=== PATIENT | female | born 1980 | race Caucasian/White ===

== ENCOUNTER → 2016-03-31 | Outpatient (CLI) | payer OTHER ==
[~2016-03-31] MED LIST: OXYC1TAB23 PO
== END ==
LOC: M LAB 14:41
PROVIDERS: ATTEND Advanced Practice Midwife
DX: N91.2 Amenorrhea, unspecified (principal)

== ENCOUNTER → 2016-04-02 | Outpatient (CLI) | payer OTHER | LOC: M LAB 12:24 | PROVIDERS: ATTEND Advanced Practice Midwife | DX: N91.2 Amenorrhea, unspecified (principal) ==

== ENCOUNTER → 2016-04-14 | Outpatient (CLI) | payer OTHER ==
[2016-04-14 21:35] LABS: BASO % 0.2 % (0.0-1.0); EOS # 0.1 K/mm3 (0.0-0.50); EOS % 0.9 % (0.0-3.0); LARGE UNSTAINED CELL # 0.2 K/mm3 (0.0-0.4); LARGE UNSTAINED CELL % 1.7 % (0.0-4.0); LYMPH # 1.8 K/mm3 (1.5-4.5); LYMPH % 19.1 % (24.0-44.0); MEAN CORPUSCULAR HEMOGLOBIN 30.6 pg (27.0-33.0); MEAN CORPUSCULAR HGB CONC 32.5 g/dl (32.0-36.5); MEAN CORPUSCULAR VOLUME 94.3 fl (80.0-96.0); MONO # 0.4 K/mm3 (0.0-0.8); MONO % 4.5 % (0.0-5.0); NEUTROPHILS # 7.1 K/mm3 (1.8-7.7); NEUTROPHILS % 73.6 % (36.0-66.0); PLATELET COUNT, AUTOMATED 309 k/mm3 (150-450); RED CELL DISTRIBUTION WIDTH 11.7 % (11.5-14.5); WHITE BLOOD COUNT 9.6 K/mm3 (4.0-10.0)
[2016-04-16 08:09] LABS: CONTROL LINE INT CTR LINE PRESENT; HIV SCRN NEGATIVE (NEGATIVE); HIV SCRN1 NEGATIVE (NEGATIVE)
[2016-04-17 11:02] LABS: HBsAg Prenatal NEGATIVE (NEGATIVE)
== END ==
LOC: M SMT 14:31
PROVIDERS: ATTEND Advanced Practice Midwife
DX: Z34.81 Encounter for supervision of other normal pregnancy, first trimester (principal)

== ENCOUNTER → 2016-04-27 | Outpatient (CLI) | payer OTHER, MEDICAID | LOC: M SMT 09:40 | PROVIDERS: ATTEND Advanced Practice Midwife | DX: Z87.59 Personal history of other complications of pregnancy, childbirth and the puerperium (principal) ==

== ENCOUNTER → 2016-07-13 | Outpatient (CLI) | payer OTHER, MEDICAID ==
--- NOTE | 2016-07-14 02:09 | REP ---
Clinical: Anatomical evaluation. Comparison: None . Findings: Examination demonstrates a single live intrauterine in breech presentation. motion is identified by technologist. Placenta is noted posteriorly and grade zero without evidence for placenta previa or abruption. Amniotic fluid volume is normal. Cervix measures 3.2 cm in length and appears closed. No evidence for nuchal cord. Gestational age by LMP 19 weeks 6 days with MATTHIAS 12/01/2016 . Gestational age by current measurements 20 weeks 4 days with MATTHIAS 11/26/2016 . FHR equals 153 beats per minute. BPD 5.0 cm 21 weeks 0 days HC 17.9 cm 20 weeks 2 days AC 16.1 cm 21 weeks 1 day FL 3.4 cm 20 weeks 5 days HL 3.2 cm 20 weeks 5 days HC/AC ratio 1.11 Estimated weight 384 grams ( 84th percentile). Anatomical assessment demonstrates normal structures including cranium, choroid plexus, cavum, cerebellum/posterior fossa, facial features, lungs, diaphragm, stomach, cord insertion/three-vessel cord, kidneys/bladder, spine, and extremities. Impression: 1. Single live intrauterine in breech presentation demonstrating appropriate interval growth. 2. Limited evaluation of the heart and cardiac ventricular outflow tract. Otherwise normal anatomical assessment. Signed by Moshe Street MD 07/14/2016 02:01 A
== END ==
LOC: M SMT 08:54
PROVIDERS: ATTEND Obstetrics & Gynecology
DX: Z34.83 Encounter for supervision of other normal pregnancy, third trimester (principal); Z3A.19 19 weeks gestation of pregnancy

== ENCOUNTER → 2016-09-13 | Outpatient (CLI) | payer OTHER ==
[~2016-09-13] MED LIST changes: +COLA100C5 PO; +IBUP-1114 PO; +PRENCAP6 PO; +PRENTAB52 PO
[2016-09-13 13:31] LABS: BASO % 0.2 % (0.0-1.0); EOS # 0.1 K/mm3 (0.0-0.50); EOS % 0.8 % (0.0-3.0); LARGE UNSTAINED CELL # 0.1 K/mm3 (0.0-0.4); LARGE UNSTAINED CELL % 0.6 % (0.0-4.0); LYMPH # 1.6 K/mm3 (1.5-4.5); LYMPH % 12.4 % (24.0-44.0); MEAN CORPUSCULAR HEMOGLOBIN 31.6 pg (27.0-33.0); MEAN CORPUSCULAR HGB CONC 33.2 g/dl (32.0-36.5); MONO # 0.5 K/mm3 (0.0-0.8); MONO % 4.3 % (0.0-5.0); NEUTROPHILS # 9.8 K/mm3 (1.8-7.7); NEUTROPHILS % 81.7 % (36.0-66.0); PLATELET COUNT, AUTOMATED 291 k/mm3 (150-450); RED CELL DISTRIBUTION WIDTH 12.2 % (11.5-14.5); WHITE BLOOD COUNT 11.9 K/mm3 (4.0-10.0)
== END ==
LOC: M SMT 08:20
PROVIDERS: ATTEND Advanced Practice Midwife
DX: Z34.83 Encounter for supervision of other normal pregnancy, third trimester (principal)

== ENCOUNTER → 2016-11-01 | Outpatient (REF) | payer OTHER | LOC: M LAB REF 12:46 | PROVIDERS: ATTEND Advanced Practice Midwife | DX: Z34.83 Encounter for supervision of other normal pregnancy, third trimester (principal) ==

== ENCOUNTER 2016-11-23 06:07 | Inpatient (IN) | payer OTHER ==
[2016-11-23] VITALS (8 sets, daily range): BP systolic 109–120; BP diastolic 52–62
[~2016-11-23] VITALS: Ht 162.6 cm; Wt 100.3 kg
[~2016-11-23 06:07] MED LIST changes: +BICITRA 30ML SOLN UDC PO ONE; -COLA100C5 PO; -IBUP-1114 PO; +LR 1,000 ML IV SCH; +LR 800 ML IV ONE
[2016-11-23 07:02] LABS: MEAN CORPUSCULAR HEMOGLOBIN 31.1 pg (27.0-33.0); MEAN CORPUSCULAR HGB CONC 34.4 g/dl (32.0-36.5); MEAN CORPUSCULAR VOLUME 90.6 fl (80.0-96.0); RED CELL DISTRIBUTION WIDTH 13.1 % (11.5-14.5); WHITE BLOOD COUNT 12.4 10^3/uL (4.0-10.0)
[2016-11-23] MEDS ORDERED: MORPHINE PRES-FREE INJ 10 MG/10 ML VIAL (J2274) As Ordered ONE (07:22)
[2016-11-23] MEDS ORDERED: OXYTOCIN INJ 10 UNITS/ML VIAL (J2590) As Ordered ONE (07:24)
[2016-11-23] MEDS ORDERED: KETOROLAC 60 MG/2 ML VIAL (J1885) As Ordered ONE (07:24)
[2016-11-23] MEDS ORDERED: ONDANSETRON 4MG/2ML VIAL (J2405) As Ordered ONE (07:24)
[2016-11-23] MEDS ORDERED: ATROPINE SULF 1MG/10ML SYRINGE (J0461) As Ordered ONE (08:17)
[2016-11-23] MEDS ORDERED: ONDANSETRON 4MG/2ML VIAL (J2405) IV PRN ×2 (09:00→09:15)
[2016-11-23] MEDS ORDERED: PERCOCET 5MG/325MG TAB PO PRN (09:00)
[2016-11-23] MEDS: PRENATAL VITAMINS CHEWABLE TABLET PO SCH (09:00)
[2016-11-23] MEDS ORDERED: DOCUSATE SODIUM 100 MG CAP PO PRN (09:00)
[2016-11-23] MEDS ORDERED: RHOGAM 300 MCG (1500 IU) INJ (J2790) IM SCH (09:00)
[2016-11-23] MEDS ORDERED: MEASLES,MUMPS,RUBELLA VACCINE INJ (MMR-II) (90707) SC SCH (09:00)
[2016-11-23] MEDS ORDERED: OXYTOCIN DRIP 30 UNITS in APPROPRIATE DILUENT 1 EA IV ONE (09:00)
[2016-11-23] MEDS ORDERED: METOCLOPRAMIDE INJ 10MG/2ML VIAL (J2765) IV PRN (09:15)
[2016-11-23] MEDS ORDERED: MEPERIDINE INJ 25 MG/ML VIAL (J2175) IV PRN (09:15)
[2016-11-23] MEDS ORDERED: LR 1,000 ML IV SCH (09:15)
[2016-11-23] MEDS ORDERED: fentaNYL 100 MCG/2 ML INJECTION (J3010) IV PRN (09:15)
--- NOTE | 2016-11-23 09:42 | RO ---
DATE OF PROCEDURE: 11/23/2016 PREPROCEDURE DIAGNOSIS: 39 weeks gestation, prior third degree perineal laceration. POSTPROCEDURE DIAGNOSIS: 39 weeks gestation, prior third degree perineal laceration. PROCEDURE: Primary low transverse section. SURGEON: Dr. Orlin Mullen. AUTO RESEARCH ENGINEER: Roselia Tran ANESTHESIA: Spinal. ESTIMATED BLOOD LOSS: 500 mL. URINE OUTPUT: 150 mL. FINDINGS: 10 pound 8 ounce male infant, 4770 grams, 9 and 9. Normal uterus, fallopian tubes and ovaries. OPERATIVE SUMMARY: The patient was taken to the operating room where spinal anesthesia was induced. She was prepped and draped in a sterile fashion in the supine position. Mcrae catheter was placed. A Pfannenstiel skin incision was made with a scalpel and carried through to the fascia. The fascia was nicked and extended. The peritoneal cavity was entered. Bladder flap was created. Curvilinear incision was made in the lower uterine segment until clear fluid was noted. This was extended manually. The infant was delivered from the vertex position without difficulty. The cord was doubly clamped and cut. The was handed off to the awaiting nurses. The placenta was expressed. The uterus was exteriorized and cleared of clots and debris. Uterine incision was closed with #0 Vicryl in a running locked fashion. A second imbricating layer of #0 Vicryl was placed. The uterus was placed back in the abdominal cavity. The peritoneum was closed with #2-0 Vicryl. The fascia was closed with #0 Vicryl in a running fashion. The deep layer was irrigated and closed with #3-0 Chromic. The skin was closed with #4-0 Monocryl subcuticular sutures. Sponge, instrument, needle counts were correct.
[2016-11-23] MEDS: LR 1,000 ML IV SCH ×2 (11:40→13:58)
[2016-11-23] MEDS: KETOROLAC 30 MG/ML VIAL (J1885) IV SCH ×2 (13:57→20:07)
[2016-11-23] MEDS ORDERED: LR 500 ML IV ONE (18:00)
[2016-11-24] VITALS (8 sets, daily range): BP systolic 99–132; BP diastolic 49–65
[2016-11-24] MEDS: LR 1,000 ML IV SCH ×4 (00:52→23:56)
[2016-11-24] MEDS: KETOROLAC 30 MG/ML VIAL (J1885) IV SCH (01:30)
[2016-11-24] MEDS: PERCOCET 5MG/325MG TAB PO PRN ×2 (05:56→16:33)
[2016-11-24 07:22] LABS: MEAN CORPUSCULAR HEMOGLOBIN 30.5 pg (27.0-33.0); MEAN CORPUSCULAR HGB CONC 32.8 g/dl (32.0-36.5); PLATELET COUNT, AUTOMATED 223 10^3/uL (150-450); RED CELL DISTRIBUTION WIDTH 13.3 % (11.5-14.5); WHITE BLOOD COUNT 15.9 10^3/uL (4.0-10.0)
[2016-11-24] MEDS ORDERED: OXYC1TAB23 PO (07:45)
[2016-11-24] MEDS: IBUPROFEN 800 MG TAB PO SCH ×3 (07:47→23:57)
[2016-11-24] MEDS: PRENATAL VITAMINS CHEWABLE TABLET PO SCH (07:47)
[2016-11-24] MEDS ORDERED: IBUPROFEN 800 MG TAB PO SCH (16:00)
[2016-11-25 02:00] VITALS: BP 115/60
[2016-11-25 06:00] VITALS: BP 113/65
[2016-11-25] MEDS: IBUPROFEN 800 MG TAB PO SCH (07:13)
[2016-11-25] MEDS ORDERED: IBUP-1114 PO (07:35)
[2016-11-25] MEDS ORDERED: COLA100C5 PO (07:36)
[2016-11-25] MEDS ORDERED: OXYC1TAB23 PO ×2 (07:37→07:38)
--- NOTE | 2016-11-25 17:29 | DSES ---
DATE OF ADMISSION: 11/23/2016 DATE OF DISCHARGE: 11/25/2016 DISCHARGE DIAGNOSIS: Primary lower transverse section. DISCHARGE CONDITION: Stable. PROCEDURES PERFORMED WHILE IN HOSPITAL: 1. Spinal anesthesia. 2. Lower transverse section. HISTORY AND HOSPITAL COURSE: Mrs. Cerda presented at 39 weeks for scheduled section secondary to a history of third-degree perineal laceration with delayed repair. section was uncomplicated, productive of a liveborn male , scores of 9 and 9, weight was 4770 grams, 10 pounds 8 ounces. Estimated blood loss was 500 mL. She did well postoperatively. On postoperative day two had met all discharge criteria and was discharged home in stable condition. PHYSICAL EXAMINATION ON DAY OF DISCHARGE: VITAL SIGNS: Stable. She was afebrile. GENERAL APPEARANCE: Is well appearing, in no acute distress. ABDOMEN: Soft, appropriately tender. Fundus was below umbilicus. Her incision was clean, dry and intact, well approximated, not erythematous. EXTREMITIES: Negative for calf tenderness. DISCHARGE MEDICATIONS: Percocet. DISCHARGE INSTRUCTIONS: 1. She is instructed to followup in two weeks for incision check. 2. She is to report severe pain, heavy vaginal bleeding, fever, incisional issues. 3. Remain on pelvic rest for six weeks.
== END 2016-11-25 09:00 | disposition home or self-care (01) | DRG 540 ==
LOC: M LDI 06:07 → M OBS 11:30
PROVIDERS: ADMIT Specialist; ATTEND Specialist
PROC: 10D00Z1 Extraction of Products of Conception, Low, Open Approach (ICD-10-PCS; principal; 2016-11-23 07:30)
DX: O82 Encounter for cesarean delivery without indication (principal); Z37.0 Single live birth; Z3A.39 39 weeks gestation of pregnancy; Z79.899 Other long term (current) drug therapy

== ENCOUNTER → 2018-01-07 | Outpatient (REF) | payer OTHER ==
[2018-01-07 15:10] LABS: BASO % 0.5 % (0.0-1.0); EOS # 0.1 10^3/uL (0.0-0.50); HEMATOCRIT 44.6 % (36.0-47.0); HEMOGLOBIN 14.6 g/dl (12.0-15.5); LYMPH # 2.3 10^3/uL (1.5-4.5); LYMPH % 39.6 % (24.0-44.0); MEAN CORPUSCULAR HEMOGLOBIN 30.9 pg (27.0-33.0); MEAN CORPUSCULAR HGB CONC 32.7 g/dl (32.0-36.5); MEAN CORPUSCULAR VOLUME 94.5 fl (80.0-96.0); MONO # 0.5 10^3/uL (0.0-0.8); MONO % 7.7 % (0.0-5.0); NEUTROPHILS # 2.9 10^3/uL (1.8-7.7); NEUTROPHILS % 50.2 % (36.0-66.0); PLATELET COUNT, AUTOMATED 288 10^3/uL (150-450); RED BLOOD COUNT 4.72 10^6/uL (4.00-5.40); RED CELL DISTRIBUTION WIDTH 11.7 % (11.5-14.5); WHITE BLOOD COUNT 5.9 10^3/uL (4.0-10.0)
[2018-01-07 15:23] LABS: ALBUMIN 3.7 GM/DL (3.2-5.2); ALBUMIN/GLOBULIN RATIO 1.32 (1.00-1.93); ALKALINE PHOSPHATASE 69 U/L (45-117); ALT/SGPT 19 U/L (12-78); ANION GAP 7 MEQ/L (8-16); AST/SGOT 13 U/L (7-37); BILIRUBIN,TOTAL 0.5 MG/DL (0.2-1.0); BLOOD UREA NITROGEN 14 MG/DL (7-18); CALCIUM LEVEL 8.7 MG/DL (8.5-10.1); CARBON DIOXIDE LEVEL 28 MEQ/L (21-32); CHLORIDE LEVEL 109 MEQ/L (98-107); CHOLESTEROL LEVEL 197 MG/DL (<200); CHOLESTEROL RISK RATIO 3.338 (<5); CREATININE FOR GFR 0.76 MG/DL (0.55-1.30); FREE T4 0.87 NG/DL (0.76-1.46); GLOMERULAR FILTRATION RATE > 60.0 (>60); GLUCOSE, FASTING 76 MG/DL (70-100); HDL CHOLESTEROL 59 MG/DL (>40); LDL CHOLESTEROL 128 MG/DL (<100); NON-HDL-C 138 MG/DL; POTASSIUM SERUM 4.6 MEQ/L (3.5-5.1); SODIUM LEVEL 144 MEQ/L (136-145); TOTAL PROTEIN 6.5 GM/DL (6.4-8.2); TRIGLYCERIDES LEVEL 49 MG/DL (<150)
[2018-01-07 15:26] LABS: TOTAL 25(OH) VITAMIN D 26.9 NG/ML (30.0-100.0)
[2018-01-07 15:28] LABS: ESTIMATED AVERAGE GLUCOSE 97 MG/DL (60-110)
== END ==
LOC: M SFHCSACK 09:20
DX: E16.2 Hypoglycemia, unspecified (principal); Z13.29 Encounter for screening for other suspected endocrine disorder; E55.9 Vitamin D deficiency, unspecified; Z83.438 Family history of other disorder of lipoprotein metabolism and other lipidemia
CPT/HCPCS: 84443

== ENCOUNTER 2018-04-24 21:15 | Emergency (ER) | payer MEDICAID, OTHER ==
[~2018-04-24] VITALS: Ht 162.6 cm; Wt 70.9 kg
[~2018-04-24 21:15] MED LIST changes: -BICITRA 30ML SOLN UDC PO ONE; +COLA100C5 PO; +IBUP-1114 PO; -LR 1,000 ML IV SCH; -LR 800 ML IV ONE
[2018-04-24] MEDS ORDERED: NS 1,000 ML IV ONE (21:30)
[2018-04-24] MEDS ORDERED: ONDANSETRON 4MG/2ML VIAL (J2405) IV ONE (21:30)
[2018-04-24 21:58] LABS: BASO % 0.4 % (0.0-1.0); EOS # 0.1 10^3/uL (0.0-0.50); EOS % 2.1 % (0.0-3.0); HEMATOCRIT 41.6 % (36.0-47.0); HEMOGLOBIN 13.9 g/dl (12.0-15.5); LYMPH # 3.2 10^3/uL (1.5-4.5); LYMPH % 47.9 % (24.0-44.0); MEAN CORPUSCULAR HEMOGLOBIN 30.8 pg (27.0-33.0); MEAN CORPUSCULAR HGB CONC 33.4 g/dl (32.0-36.5); MONO # 0.5 10^3/uL (0.0-0.8); MONO % 6.6 % (0.0-5.0); NEUTROPHILS # 2.9 10^3/uL (1.8-7.7); NEUTROPHILS % 42.9 % (36.0-66.0); PLATELET COUNT, AUTOMATED 300 10^3/uL (150-450); RED BLOOD COUNT 4.52 10^6/uL (4.00-5.40); WHITE BLOOD COUNT 6.8 10^3/uL (4.0-10.0)
[2018-04-24 22:22] LABS: ALT/SGPT 20 U/L (12-78); BILIRUBIN,DIRECT < 0.1 MG/DL (0.0-0.2); BILIRUBIN,TOTAL 0.3 MG/DL (0.2-1.0); BLOOD UREA NITROGEN 13 MG/DL (7-18); CARBON DIOXIDE LEVEL 23 MEQ/L (21-32); CHLORIDE LEVEL 106 MEQ/L (98-107); CPK CREATINE PHOSPHOKINASE 115 U/L (26-192); CREATININE FOR GFR 0.84 MG/DL (0.55-1.30); GLOMERULAR FILTRATION RATE > 60.0 (>60); GLUCOSE, FASTING 150 MG/DL (70-100); LIPASE 179 U/L (73-393); MB/CK RELATIVE INDEX 1.13 (< OR =4); POTASSIUM SERUM 3.2 MEQ/L (3.5-5.1); SODIUM LEVEL 139 MEQ/L (136-145); TROPONIN I < 0.02 NG/ML (< 0.10)
[2018-04-24 22:27] LABS: HCG, SERUM QUALITATIVE NEGATIVE (NEGATIVE)
[2018-04-24] MEDS ORDERED: POTASSIUM CHLORIDE 10 MEQ SR TABLET PO ONE (22:30)
[2018-04-25] VITALS: BP 108/70
--- NOTE | 2018-04-25 01:32 | REP ---
Clinical: Acute chest pain . Comparison: 08/10/2015 . Findings: The mediastinum and cardiac silhouette are stable and within normal limits for portable technique. The lung leone are clear without acute consolidation, effusion, or pneumothorax. Skeletal structures are intact. Impression: No acute cardiopulmonary process appreciated. Electronically Signed by Moshe Street MD 04/25/2018 01:23 A
--- NOTE | 2018-04-26 06:08 | ECGEPIP ---
Stationary ECG Study [facility] - ED Test Date: 2018-04-24 Pat Name: MILLICENT SORIANO Department: Room: - Gender: F Clinic Office Manager: : [id number] Requested By: SHELLY Giordano Order Number: [id number] Reading MD: Anderson Douglass Measurements Intervals [place] Rate: 63 P: 39 CO: 185 QRS: 80 QRSD: 116 T: 31 QT: 402 QTc: 412 Interpretive Statements SINUS RHYTHM INCOMPLETE RIGHT BUNDLE BRANCH BLOCK SIMILAR TO 08/10/15 Electronically Signed On 04-26-2018 6:08:42 EDT by Anderson Douglass
== END 2018-04-25 00:39 | disposition home or self-care (01) ==
LOC: M ED 21:15
DX: E16.2 Hypoglycemia, unspecified (principal); F33.9 Major depressive disorder, recurrent, unspecified; F41.9 Anxiety disorder, unspecified; E55.9 Vitamin D deficiency, unspecified; G43.909 Migraine, unspecified, not intractable, without status migrainosus

== ENCOUNTER → 2018-05-07 | Outpatient (REF) | payer OTHER, MEDICAID, MEDICARE ==
[2018-05-07 13:41] LABS: BASO % 0.5 % (0.0-1.0); EOS # 0.1 10^3/uL (0.0-0.50); EOS % 1.7 % (0.0-3.0); HEMOGLOBIN 14.3 g/dl (12.0-15.5); LYMPH # 2.1 10^3/uL (1.5-4.5); LYMPH % 35.1 % (24.0-44.0); MEAN CORPUSCULAR HGB CONC 33.3 g/dl (32.0-36.5); MEAN CORPUSCULAR VOLUME 93.3 fl (80.0-96.0); MONO # 0.5 10^3/uL (0.0-0.8); MONO % 9.1 % (0.0-5.0); NEUTROPHILS # 3.1 10^3/uL (1.8-7.7); NEUTROPHILS % 53.4 % (36.0-66.0); PLATELET COUNT, AUTOMATED 288 10^3/uL (150-450); RED BLOOD COUNT 4.61 10^6/uL (4.00-5.40); WHITE BLOOD COUNT 5.8 10^3/uL (4.0-10.0)
[2018-05-07 13:55] LABS: ALBUMIN 3.9 GM/DL (3.2-5.2); ALT/SGPT 17 U/L (12-78); BILIRUBIN,TOTAL 0.5 MG/DL (0.2-1.0); BLOOD UREA NITROGEN 11 MG/DL (7-18); CALCIUM LEVEL 8.8 MG/DL (8.5-10.1); CARBON DIOXIDE LEVEL 25 MEQ/L (21-32); CHLORIDE LEVEL 109 MEQ/L (98-107); CREATININE FOR GFR 0.71 MG/DL (0.55-1.30); GLOMERULAR FILTRATION RATE > 60.0 (>60); GLUCOSE, FASTING 46 MG/DL (70-100); POTASSIUM SERUM 3.9 MEQ/L (3.5-5.1); RHEUMATOID FACTOR QUANT < 10.0 IU/ML (<15.0); SODIUM LEVEL 140 MEQ/L (136-145); THYROID STIMULATING HORMONE 0.871 uIU/ML (0.358-3.740); TOTAL 25(OH) VITAMIN D 76.9 NG/ML (30.0-100.0); TOTAL PROTEIN 6.6 GM/DL (6.4-8.2)
[2018-05-07 15:12] LABS: ERYTHROCYTE SEDIMENTATION RATE 3 mm/hr (0-20)
[2018-05-08 14:25] LABS: ANTINUCLEAR ANTIBODIES DIRECT Negative (Negative)
== END ==
LOC: M LABNEURO 08:38
PROVIDERS: ATTEND Psychiatry & Neurology Neurology
DX: R51 Headache (principal)

== ENCOUNTER → 2018-05-17 | Outpatient (REF) | payer MEDICAID, MEDICARE ==
[2018-05-17 14:36] LABS: BASO % 0.4 % (0.0-1.0); EOS # 0.1 10^3/uL (0.0-0.50); EOS % 1.9 % (0.0-3.0); HEMATOCRIT 41.6 % (36.0-47.0); HEMOGLOBIN 13.8 g/dl (12.0-15.5); LYMPH % 38.7 % (24.0-44.0); MEAN CORPUSCULAR HEMOGLOBIN 31.4 pg (27.0-33.0); MEAN CORPUSCULAR HGB CONC 33.2 g/dl (32.0-36.5); MEAN CORPUSCULAR VOLUME 94.5 fl (80.0-96.0); MONO # 0.4 10^3/uL (0.0-0.8); MONO % 7.4 % (0.0-5.0); NEUTROPHILS # 2.6 10^3/uL (1.8-7.7); NEUTROPHILS % 51.4 % (36.0-66.0); PLATELET COUNT, AUTOMATED 267 10^3/uL (150-450); WHITE BLOOD COUNT 5.1 10^3/uL (4.0-10.0)
[2018-05-17 14:47] LABS: ALBUMIN 3.7 GM/DL (3.2-5.2); ALT/SGPT 17 U/L (12-78); BILIRUBIN,TOTAL 0.6 MG/DL (0.2-1.0); BLOOD UREA NITROGEN 11 MG/DL (7-18); CALCIUM LEVEL 8.5 MG/DL (8.5-10.1); CARBON DIOXIDE LEVEL 27 MEQ/L (21-32); CHLORIDE LEVEL 107 MEQ/L (98-107); CREATININE FOR GFR 0.73 MG/DL (0.55-1.30); GLOMERULAR FILTRATION RATE > 60.0 (>60); GLUCOSE, FASTING 65 MG/DL (70-100); POTASSIUM SERUM 4.3 MEQ/L (3.5-5.1); SODIUM LEVEL 139 MEQ/L (136-145); TOTAL PROTEIN 6.8 GM/DL (6.4-8.2)
[2018-05-17 14:51] LABS: TOTAL 25(OH) VITAMIN D 75.2 NG/ML (30.0-100.0)
== END ==
LOC: M SFHCSACK 09:17
PROVIDERS: ATTEND Physician Assistant
DX: F41.8 Other specified anxiety disorders (principal); E16.2 Hypoglycemia, unspecified; E55.9 Vitamin D deficiency, unspecified

== ENCOUNTER → 2018-05-28 | Outpatient (REF) | payer MEDICARE, OTHER ==
[2018-05-30 14:12] LABS: HPV HYBRID CAPTURE II Negative (Negative)
== END ==
LOC: M LAB REF 14:59
PROVIDERS: ATTEND Advanced Practice Midwife
DX: Z12.4 Encounter for screening for malignant neoplasm of cervix (principal)
CPT/HCPCS: 87624; G0123

== ENCOUNTER 2018-07-30 16:25 | Inpatient (IN) | payer MEDICAID, MEDICARE, OTHER ==
[~2018-07-30] VITALS: Ht 162.6 cm; Wt 66.8 kg
[2018-07-30 17:23] LABS: HEMATOCRIT 43.8 % (36.0-47.0); MEAN CORPUSCULAR HEMOGLOBIN 31.4 pg (27.0-33.0); MEAN CORPUSCULAR HGB CONC 34.2 g/dl (32.0-36.5); MEAN CORPUSCULAR VOLUME 91.6 fl (80.0-96.0); PLATELET COUNT, AUTOMATED 300 10^3/uL (150-450); RED BLOOD COUNT 4.78 10^6/uL (4.00-5.40)
[2018-07-30 17:48] LABS: AMPHETAMINES LEVEL URINE NEGATIVE (NEGATIVE); BARBITURATES URINE NEGATIVE (NEGATIVE); BENZODIAZEPINES URINE NEGATIVE (NEGATIVE); CANNABINOIDS URINE NEGATIVE (NEGATIVE); COCAINE METABOLITE URINE NEGATIVE (NEGATIVE); METHADONE URINE NEGATIVE (NEGATIVE); OPIATES URINE NEGATIVE (NEGATIVE); PHENCYCLIDINE URINE NEGATIVE (NEGATIVE)
[2018-07-30 17:49] LABS: HCG, SERUM QUALITATIVE NEGATIVE (NEGATIVE)
[2018-07-30 18:14] LABS: ACETAMINOPHEN LEVEL < 2.0 UG/ML (10.0-30.0); ALBUMIN 4.3 GM/DL (3.2-5.2); ALT/SGPT 21 U/L (12-78); BILIRUBIN,DIRECT 0.2 MG/DL (0.0-0.2); BILIRUBIN,TOTAL 0.7 MG/DL (0.2-1.0); BLOOD UREA NITROGEN 11 MG/DL (7-18); CARBON DIOXIDE LEVEL 21 MEQ/L (21-32); CHLORIDE LEVEL 107 MEQ/L (98-107); CREATININE FOR GFR 0.75 MG/DL (0.55-1.30); ETHYL ALCOHOL (ETHANOL) < 0.003 % (0.000-0.010); GLOMERULAR FILTRATION RATE > 60.0 (>60); GLUCOSE, FASTING 75 MG/DL (70-100); POTASSIUM SERUM 3.5 MEQ/L (3.5-5.1); SALICYLATE LEVEL < 1.7 MG/DL (5.0-30.0); SODIUM LEVEL 140 MEQ/L (136-145); THYROID STIMULATING HORMONE 0.853 uIU/ML (0.358-3.740); TOTAL PROTEIN 7.5 GM/DL (6.4-8.2)
[2018-07-30] MEDS ORDERED: BENZ2TAB5 PO (19:21)
[2018-07-30] MEDS ORDERED: VITA100T98 PO (19:21)
[2018-07-30] MEDS ORDERED: QUET5TAB PO (19:21)
[2018-07-30] MEDS ORDERED: MAGN400C PO (19:21)
[2018-07-30] MEDS ORDERED: VITA500045 PO (19:21)
[2018-07-30] MEDS ORDERED: SERT-138 PO (19:21)
[2018-07-30] MEDS ORDERED: ACETAMINOPHEN TAB 650MG DOSE (2X325MG) PO PRN (19:45)
[2018-07-30] MEDS ORDERED: MOM 30ML SUSPENSION UDC PO PRN (19:45)
[2018-07-30] MEDS ORDERED: MAALOX 30 ML SUSP *UDC PO PRN (19:45)
[2018-07-30] MEDS ORDERED: OLANZapine ORAL DISINTEGRATING TAB 5MG PO PRN (19:45)
[2018-07-30 21:31] VITALS: BP 149/86
[2018-07-31 06:28] VITALS: BP 116/59
[2018-07-31 11:23] VITALS: BP 110/61
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
[2018-07-31] MEDS ORDERED: BENZTROPINE 2 MG TAB PO PRN (12:45)
--- NOTE | 2018-07-31 13:19 | HPEPDOC ---
General Date of Admission Jul 30, 2018 at 19:41 Date of Service: Jul 31, 2018 Attending Physician: ROCHELLE REYNOLDS MD Chief Complaint The patient is a 37-year-old female admitted with a reason for visit of Uspecified Pshychotic D/O. History of Present Illness Francisco Kingston is a 37 year old female,brought in by his spouse to emergency room on account of bizarre thoughts and behaviors. Patient has a past medical history significant for migraine headaches, dysmenorrhea, anxiety, depression and hypomania. Review of medical records state patient had a baby about a year ago and is currently breast-feeding. She however had a migraine and was unable to take medications for migraine headache and subsequently decompensated. She became grandiose, with emotional lability. She was brought to the inpatient psychiatric unit by his spouse, who was concerned. On assessment, patient denies any physical symptoms, denies chest pain, denies shortness of breath, denies weakness. Home Medications Scheduled Ergocalciferol (Vitamin D2) (Vitamin D2) 50,000 Unit Capsule, 50,000 UNIT PO Q2WK, (Reported) ON THE AND OF EACH MONTH Magnesium Oxide (Magnesium) 400 Mg Capsule, 400 MG PO DAILY, (Reported) Quetiapine Fumarate (Quetiapine Fumarate) 50 Mg Tablet, 50 MG PO QHS, (Reported) pt was to start taking this medication tonight, 07/30/18. pt was to increase the dose to 2 tablets if needed, after trying 1 tablet. Riboflavin (Vitamin B2) (Vitamin B-2) 100 Mg Tablet, 100 MG PO DAILY, (Reported) Sertraline HCl (Sertraline HCl) 100 Mg Tablet, 200 MG PO DAILY, (Reported) pt was instructed to stop taking this medication today, 07/30/18, by her psychiatrist Scheduled PRN Benztropine Mesylate (Benztropine Mesylate) 2 Mg Tablet, 2 MG PO DAILY PRN for S PASMS, (Reported) pt was instructed to take this medication as needed, after starting seroquel, for potential seroquel side effects Ibuprofen (Ibuprofen) 400 Mg Tab, 800 MG PO Q8HP PRN for PAIN, (Reported) Allergies Coded Allergies: No Known Allergies (Unverified , 10/20/15) Past Medical History Medical History Migraine Dysmenorrhea Depression Anxiety Surgical History Vaginal revision Family History Denies any family history Social History * Smoker: Denies Alcohol: Denies Drugs: denies A-FIB/CHADSVASC A-FIB History Current/History of A-Fib/PAF?: No Current PO Anticoag Therapy: No Age/Risk Factor Scoring CHADSVASC: CHADSVASC Response (Comments) Value Age Risk Factor Age < 65 years old 0 Gender Risk Factor Female 1 Hx of CHF No 0 Hx of HTN No 0 Hx of Stroke/TIA/or VTE No 0 Hx of Diabetes No 0 Hx of Vascular Disease No 0 Total 1 Review of Systems Other systems A 10 point pertinent review of systems was completed, negative except as stated in the history of presenting illness. Physical Examination Other physical findings GENERAL: NAD SKIN : Warm, dry intact HEENT: Atraumatic, normocephalic, PERRL, moist mucous membrane CARDIOVASCULAR: Regular rate and rhythm, S1S2, no JVD, no edema, distal pulses + and palpable RESP: CTAB, no accessory muscle use noted ABDOMEN: BS+ non distended non tender MS: no joint deformities NEURO: Alert and oriented x 3, CN2-12 grossly intact PSYCH: no anxiety or agitation, appropriate mood and affect. Vital Signs Vital Signs Date Time Temp Pulse Resp B/P (MAP) Pulse Ox O2 Delivery O2 Flow Rate FiO2 07/31/18 11:23 98.8 83 16 110/61 (77) 07/30/18 21:31 100 07/30/18 16:26 Room Air Laboratory Data Labs 24H Laboratory Tests 2 07/30/18 17:04: Nucleated Red Blood Cells % (auto) 0.0, Anion Gap 12, Glomerular Filtration Rate > 60.0, Calcium Level 9.0, Aspartate Amino Transf (AST/SGOT) 20, Alanine Aminotransferase (ALT/SGPT) 21, Alkaline Phosphatase 69, Total Bilirubin 0.7, Direct Bilirubin 0.2, Total Protein 7.5, Albumin 4.3, Albumin/Globulin Ratio 1.34, Thyroid Stimulating Hormone (TSH) 0.853, Human Chorionic Gonadotropin, Qual NEGATIVE, Salicylates Level < 1.7L, Urine Amphetamines Screen NEGATIVE, Urine Benzodiazepines Screen NEGATIVE, Urine Opiates Screen NEGATIVE, Urine Methadone Screen NEGATIVE, Acetaminophen Level < 2.0L, Urine Barbiturates Screen NEGATIVE, Urine Phencyclidine Screen NEGATIVE, Urine Cocaine Metabolite Screen NEGATIVE, Urine Cannabinoids Screen NEGATIVE, Ethyl Alcohol Level < 0.003 CBC/BMP Laboratory Tests 07/30/18 17:04 Red Blood Count 4.78, Mean Corpuscular Volume 91.6, Mean Corpuscular Hemoglobin 31.4, Mean Corpuscular Hemoglobin Concent 34.2, Red Cell Distribution Width 11.6 Assessment/Plan Mood disorder with episode of sherry Migraine headaches Dysmenorrhea Assessment and plan Mood disorder, currently being evaluated for treatment and management by primary team Patient has no acute active medical comorbidities requiring assessment and management. Please reconsult medical team as needed. Plan / VTE VTE Prophylaxis Ordered?: No VTE Exclusion Mechanical Proph: Low Risk for VTE MOSHE ESCALANTE TELECOMMUNICATIONS MANAGER Jul 31, 2018 13:19
[2018-07-31] MEDS: MAGNESIUM OXIDE 400 MG TAB (MAG-OX) PO SCH (13:41)
[2018-07-31 18:07] VITALS: BP 124/60
[2018-07-31] MEDS: QUEtiapine FUMARATE 50 MG TAB PO SCH (23:01)
[2018-08-01 06:38] VITALS: BP 127/58
[2018-08-01] MEDS: MAGNESIUM OXIDE 400 MG TAB (MAG-OX) PO SCH (09:22)
[2018-08-01 18:00] VITALS: BP 125/77
[2018-08-01] MEDS: QUEtiapine FUMARATE 50 MG TAB PO SCH (21:27)
--- NOTE | 2018-08-01 21:27 | MHIPNPDOC ---
[facility] Progress Note Progress Note DATE OF SERVICE: 08/01/18 HISTORY: Patient is a 37 year old female, who, as per ED report: " pt met with Dr. Gastelum today who observed her bizarre behavior(laughing inappropriately, then crying hysterically) in her office and apparently diagnosed her with Bipolar Disorder(due to her manic highs and depressed lows). Dr. Gastelum prescribed a new medication(Seroquel and Cogentin)and was directed to corn picker the prescription tonight and discontinue current medication. was directed to bring pt to ED if her symptoms became worse, but felt medication would be effective. Pt denies SI and HI, but does appear to be hypomanic and currently decompensating... Chief Complaint pt states, "I'm here because I'm acting bizarre and everyone is worried about me." States she has not been herself for the past week due to unable to sleep. Admits last she "imagined a thought and new it wasn't real" but has been shouting back at the thought. Admits to racing thoughts and involuntary body movements and now has neck pain. Pt appears disorganized, but alert. Psychomotor agitation is noted. Spoke to Spouse separately regarding her behavior. He suspects her decompensation was triggered after pt suffered a Migraine last week and is only able to take B12 and Magnesium (due to breastfee ding 1 yr old), therefore her Migraine continued. States they were arguing to due not calling into work to help care for the children. He adds there is a pattern of her thinking this way and nonody caring for her. Later that night, she started talking about her past and states she became grandiose. She believes "she is a special person" and her Uncle(who ) was reincarnated to her youngest child. She then became manic, laughing inappropriately then symptoms subsided and she began to cry VITAL SIGNS: See below. NEW TEST RESULTS: See below CURRENT MEDICATIONS: See below. MENTAL STATUS EXAMINATION: Patient is a 37 year old female, who is alert, cooperative, dressed in hospital clothes. Speech: Is normal in rhythm, rate, tone and volume. Language skills are good. Thought processes including: linear, coherent. Thought content: focused on her illness, how to overcome it. She denies SI/HI. Description of abnormal or psychotic thoughts: At this moment she denies thought delusions, denies AV hallucinations, denies phobias, OCD symptoms. Judgment: improving Insight: improving. Orientation: x 3. Recent and remote memory: intact. Attention span and concentration: good. Language: full, no abnormalities present. Fund of knowledge: average. Mood: euthymic. Affect: full, appropriate, reactive, congruent with mood. DIAGNOSES: 1. Bipolar disorder. ASSESSMENT: The patient is improving, she looks more grounded, she was seen with her who came to visit her and who seemed to be very supportive. She thought that the changes she recently experienced were secondary to a personality change but I explained this was not a change in personality, the change she experienced was a change in her mood and perceptions. Expalined that she will be able to manage her illness if she is compliant with treatment, goes to his therapist/doctors appointments. She was receptive, so was her . She denied medications side effects, she says she feels much better MANAGEMENT PLAN: Will continue with current treatment plan TIME SPENT: 20 minutes. Vital Signs Vital Signs Date Time Temp Pulse Resp B/P (MAP) Pulse Ox O2 Delivery O2 Flow Rate FiO2 08/01/18 06:38 98.6 100 14 127/58 (81) 07/31/18 14:19 Room Air 07/30/18 21:31 100 Current Medications Current Medications Acetaminophen (Tylenol Tab) 650 mg Q6HP PRN PO HEADACHE or DISCOMFORT; Start 07/30/18 at 19:45 Al Hydrox/Mg Hydrox/Simethicone (Mylanta) 30 ml Q4HP PRN PO HEARTBURN/INDIGESTION; Start 07/30/18 at 19:45 Benztropine Mesylate (Cogentin) 2 mg DAILY PRN PO muscle spasms; Start 07/31/18 at 12:45 Home Med (Med Rec Complete!) ASDIRECTED XX ; Start 07/30/18 at 19:45; Stop 07/30/18 at 19:45; Status DC Magnesium Hydroxide (Milk Of Magnesia) 30 ml DAILYPRN PRN PO CONSTIPATION; Start 07/30/18 at 19:45 Magnesium Oxide (Mag-Ox) 400 mg DAILY PO Last administered on 08/01/18at 09:22; Start 07/31/18 at 09:00 Olanzapine (ZyPREXA ZYDIS) 5 mg Q4HP PRN PO anxiety; Start 07/30/18 at 19:45 Quetiapine Fumarate (SEROquel) 50 mg QHS PO Last administered on 07/31/18at 23:01; Start 07/31/18 at 21:00 Trazodone HCl (Desyrel) 50 mg QHSP PRN PO INSOMNIA; Start 07/30/18 at 19:45 Allergies Coded Allergies: No Known Allergies (Unverified , 10/20/15) TASHA OCONNELL MD Aug 01, 2018 21:27
[2018-08-01] MEDS: traZODone 50 MG TAB PO PRN (22:12)
[2018-08-02 07:10] VITALS: BP 103/59
[2018-08-02] MEDS: MAGNESIUM OXIDE 400 MG TAB (MAG-OX) PO SCH (09:30)
[2018-08-02 18:13] VITALS: BP 128/62
[2018-08-02] MEDS ORDERED: PILL CUTTER 1 EACH XX PRN (18:15)
[2018-08-02] MEDS: QUEtiapine FUMARATE 50 MG TAB PO SCH (21:11)
[2018-08-02] MEDS: traZODone 50 MG TAB PO PRN (22:46)
--- NOTE | 2018-08-02 23:41 | MHIPNPDOC ---
[facility] Progress Note Progress Note DATE OF SERVICE: 08/02/18 HISTORY: Patient is a 37 year old female, who, as per ED report: " pt met with Dr. Gastelum today who observed her bizarre behavior(laughing inappropriately, then crying hysterically) in her office and apparently diagnosed her with Bipolar Disorder(due to her manic highs and depressed lows). Dr. Gastelum prescribed a new medication(Seroquel and Cogentin)and was directed to slate picker the prescription tonight and discontinue current medication. was directed to bring pt to ED if her symptoms became worse, but felt medication would be effective. Pt denies SI and HI, but does appear to be hypomanic and currently decompensating... Chief Complaint pt states, "I'm here because I'm acting bizarre and everyone is worried about me." States she has not been herself for the past week due to unable to sleep. Admits last she "imagined a thought and new it wasn't real" but has been shouting back at the thought. Admits to racing thoughts and involuntary body movements and now has neck pain. Pt appears disorganized, but alert. Psychomotor agitation is noted. Spoke to Spouse separately regarding her behavior. He suspects her decompensation was triggered after pt suffered a Migraine last week and is only able to take B12 and Magnesium (due to breastfee ding 1 yr old), therefore her Migraine continued. States they were arguing to due not calling into work to help care for the children. He adds there is a pattern of her thinking this way and nonody caring for her. Later that night, she started talking about her past and states she became grandiose. She believes "she is a special person" and her Uncle(who ) was reincarnated to her youngest child. She then became manic, laughing inappropriately then symptoms subsided and she began to cry VITAL SIGNS: See below. NEW TEST RESULTS: See below CURRENT MEDICATIONS: See below. MENTAL STATUS EXAMINATION: Patient is a 37 year old female, who is alert, cooperative, dressed in hospital clothes. Speech: Is normal in rhythm, rate, tone and volume. Language skills are good. Thought processes including: linear, coherent. Thought content: focused on her illness, how to overcome it. She denies SI/HI. Description of abnormal or psychotic thoughts: At this moment she denies thought delusions, denies AV hallucinations, denies phobias, OCD symptoms. Judgment: improving Insight: improving. Orientation: x 3. Recent and remote memory: intact. Attention span and concentration: good. Language: full, no abnormalities present. Fund of knowledge: average. Mood: euthymic. Affect: full, appropriate, reactive, congruent with mood. DIAGNOSES: 1. Bipolar disorder. ASSESSMENT: Patient has improved but she reports she is still having some trouble sleeping. She says she is probably having some problems with her blood glucose because she feels a little bit tired. I ask her to go to the medication room and requested some orange juice for her to drink. she was not homicidal, not suicidal and not psychotic. MANAGEMENT PLAN: Will increase Seroquel to 75 mgs Po QHS TIME SPENT: 20 minutes. Vital Signs Vital Signs Date Time Temp Pulse Resp B/P (MAP) Pulse Ox O2 Delivery O2 Flow Rate FiO2 08/02/18 18:13 98.9 81 18 128/62 (84) 07/31/18 14:19 Room Air 07/30/18 21:31 100 Current Medications Current Medications Acetaminophen (Tylenol Tab) 650 mg Q6HP PRN PO HEADACHE or DISCOMFORT; Start 07/30/18 at 19:45 Al Hydrox/Mg Hydrox/Simethicone (Mylanta) 30 ml Q4HP PRN PO HEARTBURN/INDIGESTION; Start 07/30/18 at 19:45 Benztropine Mesylate (Cogentin) 2 mg DAILY PRN PO muscle spasms; Start 07/31/18 at 12:45 Home Med (Med Rec Complete!) ASDIRECTED XX ; Start 07/30/18 at 19:45; Stop 07/30/18 at 19:45; Status DC Magnesium Hydroxide (Milk Of Magnesia) 30 ml DAILYPRN PRN PO CONSTIPATION; Start 07/30/18 at 19:45 Magnesium Oxide (Mag-Ox) 400 mg DAILY PO Last administered on 08/02/18at 09:30; Start 07/31/18 at 09:00 Olanzapine (ZyPREXA ZYDIS) 5 mg Q4HP PRN PO anxiety; Start 07/30/18 at 19:45 Quetiapine Fumarate (SEROquel) 50 mg QHS PO Last administered on 08/01/18at 21:27; Start 07/31/18 at 21:00; Stop 08/02/18 at 18:05; Status DC Quetiapine Fumarate (SEROquel) 75 mg QHS PO Last administered on 08/02/18at 21:11; Start 08/02/18 at 21:00 Trazodone HCl (Desyrel) 50 mg QHSP PRN PO INSOMNIA Last administered on 08/02/18at 22:46; Start 07/30/18 at 19:45 Allergies Coded Allergies: No Known Allergies (Unverified , 10/20/15) TASHA OCONNELL MD Aug 02, 2018 23:41
[2018-08-03 06:35] VITALS: BP 117/62
[2018-08-03] MEDS: MAGNESIUM OXIDE 400 MG TAB (MAG-OX) PO SCH (08:21)
--- NOTE | 2018-08-03 10:06 | MHIPNPDOC ---
[facility] Progress Note Progress Note DATE OF SERVICE: 08/03/18 HISTORY: Patient is a 37 year old female, who, as per ED report: " pt met with Dr. Gastelum today who observed her bizarre behavior(laughing inappropriately, then crying hysterically) in her office and apparently diagnosed her with Bipolar Disorder(due to her manic highs and depressed lows). Dr. Gastelum prescribed a new medication(Seroquel and Cogentin)and was directed to garbage pick up worker the prescription tonight and discontinue current medication. was directed to bring pt to ED if her symptoms became worse, but felt medication would be effective. Pt denies SI and HI, but does appear to be hypomanic and currently decompensating... Chief Complaint pt states, "I'm here because I'm acting bizarre and everyone is worried about me." States she has not been herself for the past week due to unable to sleep. Admits last she "imagined a thought and new it wasn't real" but has been shouting back at the thought. Admits to racing thoughts and involuntary body movements and now has neck pain. Pt appears disorganized, but alert. Psychomotor agitation is noted. Spoke to Spouse separately regarding her behavior. He suspects her decompensation was triggered after pt suffered a Migraine last week and is only able to take B12 and Magnesium (due to breastfeed ing 1 yr old), therefore her Migraine continued. States they were arguing to due not calling into work to help care for the children. He adds there is a pattern of her thinking this way and nonody caring for her. Later that night, she started talking about her past and states she became grandiose. She believes "she is a special person" and her Uncle(who ) was reincarnated to her youngest child. She then became manic, laughing inappropriately then symptoms subsided and she began to cry VITAL SIGNS: See below. NEW TEST RESULTS: See below CURRENT MEDICATIONS: See below. MENTAL STATUS EXAMINATION: Patient is a 37 year old female, who is alert, cooperative, dressed in own clothes. Speech: Is normal in rhythm, rate, tone and volume. Language skills are good. Thought processes including: linear, coherent. Thought content: focused on her illness, how to overcome it. She denies SI/HI. Description of abnormal or psychotic thoughts: At this moment she denies thought delusions, denies AV hallucinations, denies phobias, OCD symptoms. Judgment: improving Insight: improving. Orientation: x 3. Recent and remote memory: intact. Attention span and concentration: good. Language: full, no abnormalities present. Fund of knowledge: average. Mood: euthymic. Affect: full, appropriate, reactive, congruent with mood. DIAGNOSES: 1. Bipolar disorder. ASSESSMENT: Pt seen and states that her mood is better and she has no complaints. States she's being social on the milieu which is beneficial. States she slept well last night. Feels she is tolerating her medications and they're beneficial. She is attending groups and finding them helpful. She denies SI/HI, hallucinations, delusions. Pt feels safe here. MANAGEMENT PLAN: continue current plan. TIME SPENT: 20 minutes. Vital Signs Vital Signs Date Time Temp Pulse Resp B/P (MAP) Pulse Ox O2 Delivery O2 Flow Rate FiO2 08/03/18 09:04 76 08/03/18 06:35 98.6 12 117/62 (80) 07/31/18 14:19 Room Air 07/30/18 21:31 100 Current Medications Current Medications Acetaminophen (Tylenol Tab) 650 mg Q6HP PRN PO HEADACHE or DISCOMFORT; Start 07/30/18 at 19:45 Al Hydrox/Mg Hydrox/Simethicone (Mylanta) 30 ml Q4HP PRN PO HEARTBURN/INDIGESTION; Start 07/30/18 at 19:45 Benztropine Mesylate (Cogentin) 2 mg DAILY PRN PO muscle spasms; Start 07/31/18 at 12:45 Home Med (Med Rec Complete!) ASDIRECTED XX ; Start 07/30/18 at 19:45; Stop 07/30/18 at 19:45; Status DC Magnesium Hydroxide (Milk Of Magnesia) 30 ml DAILYPRN PRN PO CONSTIPATION; Start 07/30/18 at 19:45 Magnesium Oxide (Mag-Ox) 400 mg DAILY PO Last administered on 08/03/18at 08:21; Start 07/31/18 at 09:00 Olanzapine (ZyPREXA ZYDIS) 5 mg Q4HP PRN PO anxiety; Start 07/30/18 at 19:45 Quetiapine Fumarate (SEROquel) 50 mg QHS PO Last administered on 08/01/18at 21:27; Start 07/31/18 at 21:00; Stop 08/02/18 at 18:05; Status DC Quetiapine Fumarate (SEROquel) 75 mg QHS PO Last administered on 08/02/18at 21:11; Start 08/02/18 at 21:00 Trazodone HCl (Desyrel) 50 mg QHSP PRN PO INSOMNIA Last administered on 08/02/18at 22:46; Start 07/30/18 at 19:45 Allergies Coded Allergies: No Known Allergies (Unverified , 10/20/15) MUKUL STRINGER DO Aug 03, 2018 10:06 am
[2018-08-03 18:00] VITALS: BP 128/62
[2018-08-03] MEDS: QUEtiapine FUMARATE 50 MG TAB PO SCH (21:02)
[2018-08-04] MEDS: traZODone 50 MG TAB PO PRN ×2 (00:33→22:36)
[2018-08-04 06:38] VITALS: BP 123/66
[2018-08-04 07:36] LABS: BLOOD UREA NITROGEN 18 MG/DL (7-18); CALCIUM LEVEL 8.8 MG/DL (8.5-10.1); CARBON DIOXIDE LEVEL 25 MEQ/L (21-32); CHLORIDE LEVEL 109 MEQ/L (98-107); CREATININE FOR GFR 0.84 MG/DL (0.55-1.30); GLOMERULAR FILTRATION RATE > 60.0 (>60); GLUCOSE, FASTING 81 MG/DL (70-100); POTASSIUM SERUM 4.1 MEQ/L (3.5-5.1); SODIUM LEVEL 142 MEQ/L (136-145)
[2018-08-04] MEDS: MAGNESIUM OXIDE 400 MG TAB (MAG-OX) PO SCH (08:16)
[2018-08-04 18:00] VITALS: BP 128/78
[2018-08-04] MEDS: QUEtiapine FUMARATE 50 MG TAB PO SCH (22:36)
[2018-08-05 06:52] VITALS: BP 104/63
[2018-08-05] MEDS: MAGNESIUM OXIDE 400 MG TAB (MAG-OX) PO SCH (08:04)
[2018-08-05] MEDS ORDERED: QUET5TAB PO (13:14)
--- NOTE | 2018-08-05 17:14 | MHDSPDOC ---
[facility] Discharge Summary Discharge Summary DATE OF ADMISSION: Jul 30, 2018 at 19:41 DATE OF DISCHARGE: Aug 05, 2018 at 14:00 Diagnoses 1. Bipolar disorder type 1, moderate, most recent episode manic. History of Present Illness The patient is a 37-year-old woman with a history of depression and reported ADHD that was treated by Dr. Gastelum, who was brought to the emergency room by her significant other after being told by Dr. Gastelum on a previous visit due to increasing bizarreness and agitation that the patient would possibly need hospitalization before symptoms continue to get worse. The patient had been recently changed from Paxil to sertraline that have had an adverse effect likely provoking a manic episode. The patient had previously given and was weaning her infant off of breast milk due to her potential need for a psychostimulant. Consultants Involved None. Treatment and Progress On The Unit The patient was admitted to the [facility] Inpatient Unit where she was subsequently discontinued on her sertraline as recommended by Dr. Gastelum . She was subsequently started on the Seroquel that had been recommended by Dr. Gastelum and increased to 75 mg a night that had a strongly positive effect on her sleep and ability to attend to social needs as well as improve her thinking process. She became much less bizarre and able to socialize with others, attend to her needs and demonstrate very good insight into her symptoms that have brought her to the inpatient unit. She subsequently improved over the weekend and was deemed ready for discharge as she had a fairly supportive family and was well-established with Dr. Gastelum. Discussion was undertaken in terms of the risks, benefits and potential side effects of Seroquel as well as the need for long-term metabolic monitoring. Her AIMS test on day of discharge was zero. Discharge Assessment 37-year-old woman with a history of potential ADHD/depression which provoked into a manic episode demonstrating a bipolar disorder was subsequently treated on inpatient mental health and stabilized. Mental Status Examination General: Well dressed with good hygiene Speech: Spontaneous and fluid Thought processes: Linear and logical MSK: Smooth and coordinated gait, no signs of tremors or involuntary orofacial movements Thought content: Future orientated Abstract reasoning, and computation: Intact Description of associations: Intact Description of abnormal or psychotic thoughts: Denies any suicidal or homicidal ideation. Denies any auditory or visual hallucinations. Does not appear to be responding to internal stimuli. Does not appear to be endorsing any bizarre or paranoid ideation. Judgment: Good Insight: Good Orientation: Alert and orientated 3 Cognition: Grossly normal Recent and remote memory: Intact Attention span and concentration: Intact Fund of knowledge: Adequate Mood: "okay" Affect: Euthymic with a full range Plan/Follow Up Arrangements The social work team worked during the predischarge meeting in order to evaluate for further issues of lethality address them fully before discharge. They worked on safety planning with the patient's family members in order to ensure that the patient will have a safe and effective discharge. The amount of time spent in the coordination of care for this patient was approximately 30 minutes. Vital Signs/I&Os Vital Signs Date Time Temp Pulse Resp B/P (MAP) Pulse Ox O2 Delivery O2 Flow Rate FiO2 08/05/18 06:52 97.9 90 12 104/63 (77) 07/31/18 14:19 Room Air 07/30/18 21:31 100 Medications Scheduled Ergocalciferol (Vitamin D2) (Vitamin D2) 50,000 Unit Capsule, 50,000 UNIT PO Q2WK, (Reported) ON THE 1ST AND 15TH OF EACH MONTH Quetiapine Fumarate (Quetiapine Fumarate) 50 Mg Tablet, 50 MG PO QHS, (Reported) pt was to start taking this medication tonight, 07/30/18. pt was to increase the dose to 2 tablets if needed, after trying 1 tablet. Quetiapine Fumarate (Quetiapine Fumarate) 50 Mg Tablet, 75 MG PO QHS for mood for 7 Days, #11 Riboflavin (Vitamin B2) (Vitamin B-2) 100 Mg Tablet, 100 MG PO DAILY, (Reported) Allergies Coded Allergies: No Known Allergies (Unverified , 10/20/15) FELI BEGUM DO Aug 05, 2018 17:14
== END 2018-08-05 14:00 | disposition home or self-care (01) | DRG 753 ==
LOC: M ED 17:50 → M ED INP 19:41 → M PSY 19:55
PROVIDERS: ADMIT Psychiatry & Neurology Psychiatry; ATTEND Psychiatry & Neurology Addiction Medicine
DX: F31.12 Bipolar disorder, current episode manic without psychotic features, moderate (principal); F41.9 Anxiety disorder, unspecified; Z79.899 Other long term (current) drug therapy; G43.909 Migraine, unspecified, not intractable, without status migrainosus

== ENCOUNTER → 2019-04-14 | Outpatient (REF) | payer OTHER ==
[~2019-04-14] MED LIST changes: +BENZ2TAB5 PO; +MAGN400C PO; +QUET5TAB PO; +SERT-138 PO; +VITA100T98 PO; +VITA500045 PO
[2019-04-14 13:57] LABS: BASO % 0.4 % (0.0-1.0); EOS # 0.2 10^3/uL (0.0-0.5); EOS % 2.9 % (0.0-3.0); HEMATOCRIT 41.5 % (36.0-47.0); HEMOGLOBIN 13.6 g/dl (12.0-15.5); LYMPH # 1.7 10^3/uL (1.5-5.0); LYMPH % 31.2 % (24.0-44.0); MEAN CORPUSCULAR HEMOGLOBIN 31.6 pg (27.0-33.0); MEAN CORPUSCULAR HGB CONC 32.8 g/dl (32.0-36.5); MEAN CORPUSCULAR VOLUME 96.5 fl (80.0-96.0); MONO # 0.4 10^3/uL (0.0-0.8); MONO % 7.9 % (0.0-5.0); NEUTROPHILS # 3.2 10^3/uL (1.5-8.5); NEUTROPHILS % 57.2 % (36.0-66.0); PLATELET COUNT, AUTOMATED 258 10^3/uL (150-450); WHITE BLOOD COUNT 5.6 10^3/uL (4.0-10.0)
[2019-04-14 14:21] LABS: ALBUMIN 3.9 GM/DL (3.2-5.2); ALT/SGPT 20 U/L (12-78); BILIRUBIN,TOTAL 0.4 MG/DL (0.2-1.0); BLOOD UREA NITROGEN 14 MG/DL (7-18); CARBON DIOXIDE LEVEL 26 MEQ/L (21-32); CHLORIDE LEVEL 108 MEQ/L (98-107); CREATININE FOR GFR 0.86 MG/DL (0.55-1.30); GLOMERULAR FILTRATION RATE > 60.0 (>60); GLUCOSE, FASTING 59 MG/DL (70-100); POTASSIUM SERUM 3.7 MEQ/L (3.5-5.1); RHEUMATOID FACTOR QUANT < 10.0 IU/ML (<15.0); SODIUM LEVEL 141 MEQ/L (136-145); THYROID STIMULATING HORMONE 0.829 uIU/ML (0.358-3.740); TOTAL 25(OH) VITAMIN D 34.4 NG/ML (30.0-100.0); TOTAL PROTEIN 6.6 GM/DL (6.4-8.2)
[2019-04-14 14:37] LABS: ERYTHROCYTE SEDIMENTATION RATE 4 mm/hr (0-20)
[2019-04-15 10:15] LABS: DRVV SCREEN 38.1 SEC
[2019-04-15 14:26] LABS: ALBUMIN 4.17 GM/DL (3.29-5.55); ALBUMIN % 63.2 % (55.8-66.1); ALPHA-1-GLOBULIN % 4.2 % (2.9-4.9); ALPHA-1-GLOBULINS 0.28 GM/DL (0.17-0.41); ALPHA-2-GLOBULINS % 9.2 % (7.1-11.8); BETA-1-GLOBULINS % 5.4 % (4.7-7.2); BETA-2-GLOBULINS % 4.7 % (3.2-6.5); GAMMA GLOBULIN % 13.3 % (11.1-18.8)
[2019-04-15 14:27] LABS: ALPHA-2-GLOBULINS 0.61 GM/DL (0.42-0.99); BETA-1-GLOBULINS 0.36 GM/DL (0.28-0.60); BETA-2-GLOBULINS 0.31 GM/DL (0.19-0.55); GAMMA GLOBULINS 0.88 GM/DL (0.65-1.58)
[2019-04-18 00:07] LABS: ANCA-ATYPICAL <1:20 titer (Neg:<1:20); ANTI DS-DNA AB Negative (Negative); ANTINUCLEAR ANTIBODIES DIRECT Negative (Negative); CYTOPLASMIC NEUTROP AB ANCA-C <1:20 titer (Neg:<1:20); PERINUCLEAR AB ANCA-P <1:20 titer (Neg:<1:20); SJOGREN'S ANTI SS-A <0.2 AI (0.0-0.9); SJOGREN'S ANTI SS-B <0.2 AI (0.0-0.9); VITAMIN B1 LEVEL WHOLE BLOOD 152.3 nmol/L (66.5-200.0); VITAMIN B6,PYRIDOXAL PHOSPHATE 10.7 ug/L (2.0-32.8); VITAMIN E(ALPHA TOCOPHEROL) 7.8 mg/L (5.9-19.4); VITAMIN E(GAMMA TOCOPHEROL) 0.3 mg/L (0.7-4.9)
== END ==
LOC: M LABNEURO 13:04
PROVIDERS: ATTEND Psychiatry & Neurology Neurology
DX: G62.9 Polyneuropathy, unspecified (principal)

== ENCOUNTER → 2020-06-16 | Outpatient (REF) | payer OTHER ==
[~2020-06-16] MED LIST changes: +QUET50TA3 PO; -QUET5TAB PO
== END ==
LOC: M SFHCWAGY 12:59
PROVIDERS: ATTEND Advanced Practice Midwife
DX: Z12.4 Encounter for screening for malignant neoplasm of cervix (principal)

== ENCOUNTER → 2020-09-27 | Outpatient (REF) | payer OTHER ==
[~2020-09-27] MED LIST changes: -QUET50TA3 PO; +QUET50TA4 PO
[2020-09-27 12:37] LABS: BASO % 0.4 % (0.0-1.0); EOS # 0.1 10^3/uL (0.0-0.5); EOS % 1.9 % (0.0-3.0); HEMATOCRIT 42.8 % (36.0-47.0); HEMOGLOBIN 14.3 g/dl (12.0-15.5); LYMPH # 1.8 10^3/uL (1.5-5.0); LYMPH % 38.3 % (24.0-44.0); MEAN CORPUSCULAR HEMOGLOBIN 31.8 pg (27.0-33.0); MEAN CORPUSCULAR HGB CONC 33.4 g/dl (32.0-36.5); MEAN CORPUSCULAR VOLUME 95.3 fl (80.0-96.0); MONO # 0.5 10^3/uL (0.0-0.8); MONO % 10.4 % (2.0-8.0); NEUTROPHILS # 2.3 10^3/uL (1.5-8.5); NEUTROPHILS % 48.8 % (36.0-66.0); PLATELET COUNT, AUTOMATED 272 10^3/uL (150-450); RED BLOOD COUNT 4.49 10^6/uL (4.00-5.40); WHITE BLOOD COUNT 4.8 10^3/uL (4.0-10.0)
[2020-09-27 13:09] LABS: ALBUMIN 3.9 GM/DL (3.2-5.2); ALT/SGPT 23 U/L (12-78); BILIRUBIN,TOTAL 0.7 MG/DL (0.2-1.0); BLOOD UREA NITROGEN 12 MG/DL (7-18); CALCIUM LEVEL 9.1 MG/DL (8.5-10.1); CARBON DIOXIDE LEVEL 28 MEQ/L (21-32); CHLORIDE LEVEL 110 MEQ/L (98-107); CHOLESTEROL LEVEL 146 MG/DL (<200); CHOLESTEROL RISK RATIO 3.106 (<5); CREATININE FOR GFR 0.75 MG/DL (0.55-1.30); FREE T4 0.97 NG/DL (0.76-1.46); GLOMERULAR FILTRATION RATE > 60.0 (>60); GLUCOSE, FASTING 73 MG/DL (70-100); HDL CHOLESTEROL 47 MG/DL (>40); LDL CHOLESTEROL 90 MG/DL (<100); NON-HDL-C 99 MG/DL; POTASSIUM SERUM 4.5 MEQ/L (3.5-5.1); SODIUM LEVEL 142 MEQ/L (136-145); THYROID STIMULATING HORMONE 0.676 uIU/ML (0.358-3.740); TOTAL PROTEIN 6.7 GM/DL (6.4-8.2); TRIGLYCERIDES LEVEL 45 MG/DL (<150)
[2020-09-27 13:17] LABS: TOTAL 25(OH) VITAMIN D 30.5 NG/ML (30.0-100.0)
== END ==
LOC: M SFHCADAM 08:03
PROVIDERS: ATTEND Physician Assistant Medical
DX: G43.919 Migraine, unspecified, intractable, without status migrainosus (principal); Z13.29 Encounter for screening for other suspected endocrine disorder; E78.00 Pure hypercholesterolemia, unspecified; E55.9 Vitamin D deficiency, unspecified

== ENCOUNTER 2020-12-09 14:57 | Emergency (ER) | payer OTHER, MEDICAID ==
[~2020-12-09] VITALS: Ht 162.6 cm; Wt 67.1 kg
[2020-12-09 14:58] VITALS: BP 129/59
--- OUTSIDE RECORDS SUMMARY | 2020-12-09 15:02 | CCD ---
Author Author [facility] Organization [facility] Address Unknown Phone Unavailable Care Team Providers Care Compliance Testing Analyst Name Role Phone Paty Kumar Unavailable PROBLEMS Type Condition ICD9-CM Code [id number] Code Onset Dates Condition S tatus W/U Status Risk SNOMED Code Notes Problem Generalized anxiety disorder F41.1 Active confirme d 43655448 Problem Bipolar disorder, in partial remission, most rec ent episode manic F31.73 Active confirmed 623389170 Problem Vitamin D deficiency E55.9 Active confirmed 62551638 Problem Migraine without status migr ainosus, not intractable, unspecified migraine type G43.909 Active confirmed 46280878 Problem Bipolar 1 disorder F31.9 Active confirmed 3 [id number] ALLERGIES No Known Allergies ENCOUNTERS from 1982 to 2020-11-11 Encounter Location Date Provider Diagnosis [address] [place] [address] Nov, Paty Kumar Vitamin D deficiency E55.9 ; Annual phys ical exam Z00.00 and Generalized anxiety disorder F41.1 IMMUNIZATIONS Vaccine Route Administration Date Status Influenza 18 yrs & older Flublok IM Intramuscular Dec 10, 2017 Administered SOCIAL HISTORY Tobacco Use: Social History Observation Description Date Details (start date - stop date) Never Smoker Sex Assigned At : Social History Observation Description Sex Assigned At Unknown Audit Question Answer Notes Total Score: 0 Interpretation: Alcohol Education Language: Question Answer Notes Languages spoken: Tajik Buddhist: Question Answer Notes Buddhist No sabianist beliefs that would impact health care. Domestic Violence: Question Answer Notes Status: denies 12/2017 Sexual Hx: Question Answer Notes Had sex in the last 12 months (vaginal, oral, or anal)? Yes LMP: 04/13/20 Have you ever had an STD? No with Men only Use protection? Yes How often? All of the time Drug and Alcohol Question Answer Notes Total Score: 0 Interpretation: No problems reported Alcohol Screening: Question Answer Notes Did you have a drink containing alcohol in the past year? No Points 0 Interpretation Negative Tobacco Use: Question Answer Notes Are you a: never smoker REASON FOR REFERRAL No Information VITAL SIGNS Weight 147 lbs Nov, Height 64 in Nov, BMI 25.23 kg/m2 Nov, Heart Rate 104 /min Nov, Respiratory Rate 18 /min Nov, Temperature 97.9 degrees Fahrenheit Nov, Oximetry 99 Nov, Blood pressure systolic 90 mm Hg Nov, Blood pressure diastolic 68 mm Hg Nov, MEDICATIONS Medication SIG (Take, Route, Frequency, Duration) Notes Start Da te End Date Status Amoxicillin-Pot Clavulanate 875-125 MG 1 tablet Orally every 12 hrs for 10 day(s) Oct, Active SEROquel 50 MG 1 tablet at bedtime Orally Once a day Active Vitamin D 50 MCG (1999) 1 tablet Orally Once a day for 30 day (s) Nov, Active Mirena Placed 2018 Active PROCEDURES No Information RESULTS No Results REASON FOR VISIT 6 month MEDICAL (GENERAL) HISTORY Type Description Date Medical History Bipolar/depression/generalized & soial a nxiety, ADHD - Gastelum Medical History migraines headaches - Neuro MRIs 2018. Medical History allergic rhinitis Medical History Vit D Deficiency Surgical History Cesarian Section 2016 Surgical History Vaginal revision - due to th ird degree tear during a home 2016 Hospitalization History c section 2017 Hospitalization History [facility] - [facility] 07/30/18 Goals Section No Information Health Concerns No Information MEDICAL EQUIPMENT No Information MENTAL STATUS No Information FUNCTIONAL STATUS No Information ASSESSMENTS Encounter Date Diagnosis Assessment Notes Treatment Notes Treatm ent Clinical Notes Nov, Vitamin D deficiency (ICD-10 - E55.9) Nov, Annual physical exam (ICD-10 - Z00.00) Nov, Generalized anxiety disorder (ICD-10 - F41.1) Nov, Other No indication fo r mammo. 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 COVID vaccinated, Pfizer. PLAN OF TREATMENT Medication Medication Name Sig Start Date Stop Date Vitamin D 50 MCG (1999) 1 tablet Orally Once a day for 30 day(s) Nov, Future Test Test Name Order Date CBC with Differential 20211109 Comprehensive Metabolic Profile (CMP) 20211109 LIPID PANEL (CARDIAC RISK) 20211109 VITAMIN D 25-HYDROXY [id number] Next Appt Details 1 Year, BW before Reason: Provider Name:Jessica Neri, 2020-11-25 08:00:00 AM, [address] [place] [address], , [place], [address], Provider Name:Paty Kumar, 2021-11-10 08:00:00 AM, [address], , [place], [address], Insurance Providers Payer Name Payer Address Payer Phone Insured Name Patient Relati onship to Insured Coverage Start Date Coverage End Date [facility] [address] [facility] [phone] MILLICENT SORIANO self
--- OUTSIDE RECORDS SUMMARY | 2020-12-09 15:02 | CCD ---
Author Author [facility] Organization [facility] Address Unknown Phone Unavailable Care Team Providers Care Boiling House Hand Name Role Phone Jessica Neri Unavailable PROBLEMS Type Condition ICD9-CM Code [id number] Code Onset Dates Condition S tatus W/U Status Risk SNOMED Code Notes Problem Generalized anxiety disorder F41.1 Active confirme d 11464193 Problem Bipolar disorder, in partial remission, most rec ent episode manic F31.73 Active confirmed 426641212 Problem Vitamin D deficiency E55.9 Active confirmed 08548047 Problem Migraine without status migr ainosus, not intractable, unspecified migraine type G43.909 Active confirmed 57590141 Problem Bipolar 1 disorder F31.9 Active confirmed 3 60937849 ALLERGIES No Known Allergies ENCOUNTERS from 1982 to 2020-11-30 Encounter Location Date Provider Diagnosis [facility] Dermatology [address] [place] [address] [place] [address] Nov, Jessica Daron Skin cancer screening Z12.83 ; Lentigines L81.4 ; Melanocytic nevi of trunk D22.5 and Family history of skin cancer Z80.8 IMMUNIZATIONS Vaccine Route Administration Date Status Influenza 18 yrs & older Flublok IM Intramuscular Dec 10, 2017 Administered SOCIAL HISTORY Tobacco Use: Social History Observation Description Date Details (start date - stop date) Never Smoker Sex Assigned At : Social History Observation Description Sex Assigned At Unknown Audit Question Answer Notes Total Score: 0 Interpretation: Alcohol Education Language: Question Answer Notes Languages spoken: Macedonian Church: Question Answer Notes Church No zoroastrianism beliefs that would impact health care. Domestic [...] FOR REFERRAL No Information VITAL SIGNS Weight 151 lbs Nov, Weight-kg 68.49 kg Nov, Height 64 in Nov, BMI 25.92 kg/m2 Nov, Blood pressure systolic 116 mm Hg Nov, Blood pressure diastolic 70 mm Hg Nov, MEDICATIONS Medication SIG (Take, Route, Frequency, Duration) Notes Start Da te End Date Status Fish Oil 600 MG 1 capsule Orally Once a day for 30 day(s) Active Amoxicillin-Pot Clavulanate 875-125 MG 1 tablet Orally every 12 hrs for 10 day(s) Oct, Not-Taking Vitamin D 50 MCG (2000 UT) 1 tablet Orally Once a day for 30 day (s) Nov, Active SEROquel 50 MG 1 tablet at bedtime Orally Once a day Active Mirena Placed 2018 Active PROCEDURES No Information RESULTS No Results REASON FOR VISIT fbse MEDICAL (GENERAL) HISTORY Type Description Date Medical [...] Treatment Notes Treatm ent Clinical Notes Nov, Lentigines (ICD-10 - L81.4) Benign, reassurance, ABCDE, photoprotection Nov, Skin cancer screening (ICD-10 - Z12.83) Patient counseled on signs and symptoms of skin cancer including ABCDE's of Melanoma. Patient counseled to wear sunscreen or use sun protective clothing when outdoors. Avoid peak hours of sun between 10-2. Patient instructed to call with any new or changing lesions. Nov, Melanocytic nevi of trunk (ICD-10 - D22.5) Nov, Family history of skin cancer (ICD-10 - Z80.8) PLAN OF TREATMENT Treatment Notes Assessment Notes Clinical Notes Lentigines Benign, reassurance, ABCDE, photoprotection Skin cancer screening Patient counseled on signs and symptoms of skin cancer including ABCDE's of Melanoma. Patient counseled to wear sunscreen or use sun protective clothing when outdoors. Avoid peak hours of sun between 10-2. Patient instructed to call with any new or changing lesions. Next Appt Details 1 Year Reason:FBSE Provider Name:Paty Kumar, 2021-11-10 08:00:00 AM, [address] , , [place], [address], Provider Name:Jessica Neri, 2021-11-28 08:30:00 AM, [address] [place] [address], , [place], [address], Follow Up:1 YearFBSE Insurance Providers Payer Name Payer Address Payer Phone Insured Name Patient Relati onship to Insured Coverage Start Date Coverage End Date [facility] [address] [facility] [phone] MILLICENT SORIANO self
--- OUTSIDE RECORDS SUMMARY | 2020-12-09 15:03 | CCD ---
Author Author [facility] Organization [facility] Address Unknown Phone Unavailable Care Team Providers Care Learning Support Aide Name Role Phone Paty Kumar Unavailable PROBLEMS Type Condition ICD9-CM Code [id number] Code Onset Dates Condition S tatus W/U Status Risk SNOMED Code Notes Problem Generalized anxiety disorder F41.1 Active confirme d 87398392 Problem Bipolar disorder, in partial remission, most rec ent episode manic F31.73 Active confirmed 250060014 Problem Vitamin D deficiency E55.9 Active confirmed 65592588 Problem Migraine without status migr ainosus, not intractable, unspecified migraine type G43.909 Active confirmed 28682245 Problem Bipolar 1 disorder F31.9 Active confirmed 3 [id number] ALLERGIES No Known Allergies ENCOUNTERS from 1982 to 2020-11-01 Encounter Location Date Provider Diagnosis [address] [phone] [place] [address] Oct, Paty Kumar IMMUNIZATIONS Vaccine Route Administration Date Status Influenza 18 yrs & older Flublok IM Intramuscular Dec 10, 2017 Administered SOCIAL HISTORY Tobacco Use: Social History Observation Description Date Details (start date - stop date) Never Smoker Sex Assigned At : Social History Observation Description Sex Assigned At Unknown Audit Question Answer Notes Total Score: 0 Interpretation: Alcohol Education Language: Question Answer Notes Languages spoken: Estonian Latter Day: Question Answer Notes Latter Day No sabianism beliefs that would impact health care. Domestic [...] REASON FOR REFERRAL No Information VITAL SIGNS No information MEDICATIONS Medication SIG (Take, Route, Frequency, Duration) Notes Start Da te End Date Status Multivitamin Adult - as directed Orally Daily Not-Taking busPIRone HCl 15 MG 1 tablet Orally bid Unknown Mirena Placed 2018 Active Maxalt 10 MG 1 tablet Orally Once a day for 30 Days Apr Not-Taking SEROquel 200 MG 1 tablet at bedtime Orally Once a day Active predniSONE 20 MG 2 tablets Orally once a day for 5 days Oct, Active SEROquel 50 MG 1 tablet at bedtime Orally Once a day for 30 day(s) Unknown PROCEDURES No Information RESULTS No Results REASON FOR VISIT infected ear piercing MEDICAL (GENERAL) HISTORY Type Description Date Medical History Bipolar/depression/generalized & soial a nxiety, ADHD Medical History migraines headaches - Neuro MRIs 2018. Medical History allergic rhinitis Medical History Vit D Deficiency Surgical History Cesarian Section 2017 Surgical History Vaginal revision - due to th ird degree tear during a home 2016 Hospitalization History c section 2017 Hospitalization History [facility] 07/30/18 Goals Section No Information Health Concerns No Information MEDICAL EQUIPMENT No Information MENTAL STATUS No Information FUNCTIONAL STATUS No Information ASSESSMENTS No Information PLAN OF TREATMENT Next Appt Details Provider Name:Paty Kumar, 2020-11-09 04:00:00 PM, [address], , [place], [address], Provider Name:Jessica Neri, 2020-11-25 08:00:00 AM, [address] [facility], , [place], [address], Insurance Providers Payer Name Payer Address Payer Phone Insured Name Patient Relati onship to Insured Coverage Start Date Coverage End Date [facility] COMMUN[facility] [address] [place] [phone] MILLICENT SORIANO self
--- OUTSIDE RECORDS SUMMARY | 2020-12-09 15:03 | CCD | Clinical Summary ---
Author Author [facility] Organization [facility] Address [address] [place] [address] Phone Care Team Providers Care Customer Security Clerk Name Role Phone Charlotte Bhakta DDS Unavailable [phone] Reason for Referral No Reason for Referral Recorded Reason for Visit and Chief Complaint H Adult Prophy Problems Includes: Problems addressed during this encounter and other active ProblemsNo Active Problems Plan of Treatment Future Appointments Date Time Location Provider H Adult Prophy 04/18/2021 10:40AM [facility] Assessments Includes: Assessments from this encounterNo Assessments Recorded Instructions Includes: Instructions from this encounterNo Instructions Recorded Medical Equipment - Implanted Devices Includes: Current DevicesNo Medical Equipment Recorded Medications Includes: Medications discussed during this encounter and other current Medicati ons Discontinued / Stopped on this date Sherry Zavala DDS on 04/26/2020 Chlorhexidine Gluconate 0.12% Mouth/Throat Solution Provider: Lauryn Zavala DDS Diagnosis: New / Renewed during this visit Priti Sykes DDS on 10/14/2020 Chlorhexidine Gluconate 0.12% Mouth/Throat Solution Provider: Priti Sykes DDS 30 day supply: 473 mL, 3 refills Diagnosis: twice a day after brushing, swish and spit approx one capful Pharmacy: [id number] - [id number] [facility], [phone] - Past Medications on file Amoxicillin 500 MG Oral Capsule 10/09/2019 - 10/19/2019 Prov ider: Charlotte Bhakta DDS Diagnosis: take 1 tab every 8 hours until gone Amoxicillin 500MG Oral Capsule 05/10/2018 - 05/20/2018 Provi sampson: Charlotte Bhakta DDS Diagnosis: take 1 tab every 8 hours until gone Medications Administered Includes: Administered Medications from this encounterNo Administered Medications Recorded Vital Signs Includes: Vital Signs from this encounterNo Vital Signs Recorded For Specified Dates Results Includes: Results discussed during this encounterNo Results Recorded For Specified Dates History of Present Illness Includes: History of Present Illness from this encounterNo History of Present Illness Recorded Social History Description Last Updated Smoking status : Unknown if ever smoked 05/14/2018 Procedures and Surgical History Includes: Procedures from this encounter Procedures Code Diagnosis Performing Provider Service Location Service Date [place] - 4 radiographic images D0274 Encount er for dental exam and cleaning w/o abnormal findings Ellen Callahan [facility] 10/14/2020 Nutritional Counseling D1310 Encounter for den jaycee exam and cleaning w/o abnormal findings Ellen Callahan [facility] 10/14/2020 Oral Hygiene/Blake Inst D1330 Encounter for de ntal exam and cleaning w/o abnormal findings Ellen London [facility] 10/14/2020 Oral Cancer Screening D0191 Encounter for dent al exam and cleaning w/o abnormal findings Ellen Callahan [facility] 10/14/2020 Periodic Oral Evaluation D0120 Encounter for d ental exam and cleaning w/o abnormal findings Ellen London [facility] 10/14/2020 Prophylaxis Adult D1110 Encounter for dental exam and cleaning w/o abnormal findings Ellen London [facility] 10/14/2020 Transition in care medication list update Clinical summary transmitted to cheyanne moe provider electronically with reasonable certainty of receipt or receiving provider electronically through [email or web address] [facility] Medical History Includes: Medical History addressed during this encounterNo Medical History Recorded Family History Includes: Family History addressed during this encounterNo Family History Recorded Review of Systems Includes: Review of Systems from this encounterNo Review of Systems Recorded Mental Status Includes: Mental Status from this encounterNo Mental Status Recorded Functional Status Includes: Functional Status from this encounterNo Functional Status Recorded Physical Exam Includes: Physical Exam from this encounterNo Physical Exam Recorded Immunizations Includes: Immunizations addressed during this encounterNo Immunizations Recorded Allergies Includes: Active AllergiesNo Known Allergies Encounters Encounter Provider Location Date Check-In Time Check-Out Time D iagnosis H Adult Prophy Ellen Callahan [facility] 10/14/2020 10:03AM 10:51AM Insurance Includes: Active Insurance Policies Plan Name Member ID Group # Subscriber Relationship Effective Da rody 1 - D [employer] Medicaid [id number] Denisa Singh Se lf 04/05/2018 - Unknown Advance Directives Includes: Current Advance Directives Directive Pat Aware Third Alliance Party Effective Date Reviewed Status packet given Pt Bill of Rights, Priv Prac, Ad Dir Yes 09/03/2018 Current and Verified Note: Pt declined AD packet Ebola Screening Performed Yes 10/09/2019 Current and Verified Note: Within the last month, have you traveled outside of the [place]? - NO Health Concerns Includes: Health Concerns for current assessmentsNo Active Health Concerns Recorded Goals Includes: Active Goals for current assessmentsNo Active Goals Recorded Interventions Includes: Interventions for current assessmentsNo Interventions Recorded Evaluations & Outcomes Includes: Evaluations & Outcomes for current assessmentsNo Outcomes Recorded
--- OUTSIDE RECORDS SUMMARY | 2020-12-09 15:03 | CCD ---
Author Author [facility] Organization [facility] Address Unknown Phone Unavailable Care Team Providers Care Dining Room Coordinator Name Role Phone Christie Shaw Unavailable PROBLEMS Type Condition ICD9-CM Code [id number] Code Onset Dates Condition S tatus W/U Status Risk SNOMED Code Notes Problem Generalized anxiety disorder F41.1 Active confirme d 07918356 Problem Bipolar disorder, in partial remission, most rec ent episode manic F31.73 Active confirmed 926817019 Problem Vitamin D deficiency E55.9 Active confirmed 03989126 Problem Migraine without status migr ainosus, not intractable, unspecified migraine type G43.909 Active confirmed 24614850 Problem Bipolar 1 disorder F31.9 Active confirmed 3 [id number] ALLERGIES No Known Allergies ENCOUNTERS from 1982 to 2020-10-12 Encounter Location Date Provider Diagnosis [address] [phone] [place] [address] Oct, Christie Shaw Biceps tendinitis of left up per extremity M75.22 IMMUNIZATIONS Vaccine Route Administration Date Status Influenza 18 yrs & older Flublok IM Intramuscular Dec 10, 2017 Administered SOCIAL HISTORY Tobacco Use: Social History Observation Description Date Details (start date - stop date) Never Smoker Sex Assigned At : Social History Observation Description Sex Assigned At Unknown Audit Question Answer Notes Total Score: 0 Interpretation: Alcohol Education Language: Question Answer Notes Languages spoken: Irish Restorationism: Question Answer Notes Restorationism No catholic beliefs that would impact health care. Domestic [...] FOR REFERRAL No Information VITAL SIGNS Weight 142 lbs Oct, Weight-kg 64.41 kg Oct, Height 64 in Oct, BMI 24.37 kg/m2 Oct, Heart Rate 75 /min Oct, Respiratory Rate 18 /min Oct, Temperature 97.9 degrees Fahrenheit Oct, Oximetry 100 Oct, Blood pressure systolic 104 mm Hg Oct, Blood pressure diastolic 64 mm Hg Oct, MEDICATIONS Medication SIG (Take, Route, Frequency, Duration) Notes Start Da te End Date Status Mirena Placed 2018 Active Multivitamin Adult - as directed Orally Daily Not-Taking SEROquel 200 MG 1 tablet at bedtime Orally Once a day Active SEROquel 50 MG 1 tablet at bedtime Orally Once a day for 30 day(s) Unknown Maxalt 10 MG 1 tablet Orally Once a day for 30 Days Apr Not-Taking predniSONE 20 MG 2 tablets Orally once a day for 5 days Oct, Active busPIRone HCl 15 MG 1 tablet Orally bid Unknown PROCEDURES No Information RESULTS No Results REASON FOR VISIT L arm and shoulder pain and limited ROM MEDICAL (GENERAL) HISTORY Type Description Date Medical [...] Notes Treatment Notes Treatm ent Clinical Notes Oct, Biceps tendinitis of left upper extremity (ICD-1 0 - M75.22) Discussed with patient that it is likely that she overdid it with the yoga and stretching. Avoidance of heavy lifting, pushing, pulling. Will start a short course of prednisone for the acute inflammation. Patient agrees with plan. Will follow up as needed. Pt agrees with plan Oct, Other Total time dahlia keen for the patient on the day of the encounter was 20 min PLAN OF TREATMENT Medication Medication Name Sig Start Date Stop Date predniSONE 20 MG 2 tablets Orally once a day for 5 days Oct, Treatment Notes Assessment Notes Clinical Notes Biceps tendinitis of left upper extremity Discussed with patient that it is likely that she overdid it with the yoga and stretching. Avoidance of heavy lifting, pushing, pulling. Will start a short course of prednisone for the acute inflammation. Patient agrees with plan. Will follow up as needed. Pt agrees with plan Next Appt Details Provider Name:Paty Kumar, 2020-10-22 03:30:00 PM, [address] [address], , [place], [address], Provider Name:Jessica Neri, 2020-11-25 08:00:00 AM, [address] [place] [address], , [place], [address], Insurance Providers Payer Name Payer Address Payer Phone Insured Name Patient Relati onship to Insured Coverage Start Date Coverage End Date [facility] [address] [facility] [phone] MILLICENT SORIANO self
--- OUTSIDE RECORDS SUMMARY | 2020-12-09 15:03 | CCD ---
Author Author [facility] Organization [facility] Address Unknown Phone Unavailable Care Team Providers Care Painter Supervisor Name Role Phone Paty Kumar Unavailable PROBLEMS Type Condition ICD9-CM Code [id number] Code Onset Dates Condition S tatus W/U Status Risk SNOMED Code Notes Problem Generalized anxiety disorder F41.1 Active confirme d 35209905 Problem Bipolar disorder, in partial remission, most rec ent episode manic F31.73 Active confirmed 259167781 Problem Vitamin D deficiency E55.9 Active confirmed 26260812 Problem Migraine without status migr ainosus, not intractable, unspecified migraine type G43.909 Active confirmed 98835232 Problem Bipolar 1 disorder F31.9 Active confirmed 3 [id number] ALLERGIES No Known Allergies ENCOUNTERS from 1982 to 2020-10-06 Encounter Location Date Provider Diagnosis [address] [phone] [place] [address] Sep, Paty Kumar IMMUNIZATIONS Vaccine Route Administration Date [...] Education Language: Question Answer Notes Languages spoken: Danish Advent: Question Answer Notes Advent No mu-ism beliefs that would impact health care. Domestic [...] End Date Status Mirena Placed 2018 Active SEROquel 200 MG 1 tablet at bedtime Orally Once a day Active Maxalt 10 MG 1 tablet Orally Once a day for 30 Days Apr Active SEROquel 50 MG 1 tablet at bedtime Orally Once a day for 30 day(s) Not-Taking busPIRone HCl 15 MG 1 tablet Orally bid Not-Taking Multivitamin Adult - as directed Orally Daily Active PROCEDURES No Information RESULTS No Results REASON FOR VISIT pain to L arm MEDICAL (GENERAL) HISTORY Type Description Date Medical [...] PLAN OF TREATMENT Next Appt Details Provider Name:Christie Shaw, 10-06 08:00:00 AM, [address] [facility] [phone], [place], [address], Provider Name:Paty Kumar, 2020-10-22 03:30:00 PM, [address], , [place], [address], Provider Name:Jessica Neri, 2020-11-25 08:00:00 AM, [address] [facility], , [place], [address], Insurance Providers Payer Name Payer Address Payer Phone Insured Name Patient Relati onship to Insured Coverage Start Date Coverage End Date [facility] [address] [facility] [phone] MILLICENT SORIANO self
--- OUTSIDE RECORDS SUMMARY | 2020-12-09 15:03 | CCD ---
Author Author [facility] Organization [facility] Address Unknown Phone Unavailable Care Team Providers Care Transitions Manager Name Role Phone Viola Quigley Unavailable PROBLEMS Type Condition ICD9-CM Code [id number] Code Onset Dates Condition S tatus W/U Status Risk SNOMED Code Notes Problem Generalized anxiety disorder F41.1 Active confirme d 15603861 Problem Bipolar disorder, in partial remission, most rec ent episode manic F31.73 Active confirmed 042881106 Problem Vitamin D deficiency E55.9 Active confirmed 00222434 Problem Migraine without status migr ainosus, not intractable, unspecified migraine type G43.909 Active confirmed 11774644 Problem Bipolar 1 disorder F31.9 Active confirmed 3 49521896 ALLERGIES No Known Allergies ENCOUNTERS from 1982 to 2020-11-07 Encounter Location Date Provider Diagnosis [address] [place] [address] Oct, Viola Soraida Ear piercing Z41.3 IMMUNIZATIONS Vaccine Route Administration Date Status Influenza 18 yrs & older Flublok IM Intramuscular Dec 10, 2017 Administered SOCIAL HISTORY Tobacco Use: Social History Observation Description Date Details (start date - stop date) Never Smoker Sex Assigned At : Social History Observation Description Sex Assigned At Unknown Audit Question Answer Notes Total Score: 0 Interpretation: Alcohol Education Language: Question Answer Notes Languages spoken: Urdu Rastafari: Question Answer Notes Rastafari No jain beliefs that would impact health care. Domestic [...] FOR REFERRAL No Information VITAL SIGNS Weight 149.6 lbs Oct, Weight-kg 67.86 kg Oct, Height 64 in Oct, BMI 25.68 kg/m2 Oct, Heart Rate 80 /min Oct, Respiratory Rate 18 /min Oct, Temperature 97.8 degrees Fahrenheit Oct, Oximetry 97 Oct, Blood pressure systolic 110 mm Hg Oct, Blood pressure diastolic 72 mm Hg Oct, MEDICATIONS Medication SIG (Take, Route, Frequency, Duration) Notes Start Da te End Date Status Multivitamin Adult - as directed Orally Daily Not-Taking Amoxicillin-Pot Clavulanate 875-125 MG 1 tablet Orally every 12 hrs for 10 day(s) Oct, Active Mirena Placed 2018 Active SEROquel 50 MG 1 tablet at [...] Information RESULTS No Results REASON FOR VISIT ? left ear infection MEDICAL (GENERAL) HISTORY Type Description Date Medical [...] Treatment Notes Treatm ent Clinical Notes Oct, Ear piercing (ICD-10 - Z41.3) Discussed with patient, ear looks normal for a fresh piercing without signs of infection. It looks a little swollen, OK to ice a couple times/day. Monitor for redness or drainage. PLAN OF TREATMENT Medication Medication Name Sig Start Date Stop Date Amoxicillin-Pot Clavulanate 875-125 MG 1 tablet Orally every 12 hrs for 10 day(s) Oct, Treatment Notes Assessment Notes Clinical Notes Ear piercing Discussed with rosemary nt, ear looks normal for a fresh piercing without signs of infection. It looks a little swollen, OK to ice a couple times/day. Monitor for redness or drainage. Next Appt Details Provider Name:Paty Kumar, 2020-11-09 04:00:00 PM, [address] [address], , [place], [address], Provider Name:Jessica Neri, 2020-11-25 08:00:00 AM, [address] [place] [address], , [place], [address], Insurance Providers Payer Name Payer Address Payer Phone Insured Name Patient Relati onship to Insured Coverage Start Date Coverage End Date [facility] COMMUNITY PLAN [facility] [address] [facility] [phone] MILLICENT SORIANO self
--- OUTSIDE RECORDS SUMMARY | 2020-12-09 15:03 | CCD ---
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 If such information is present, then the following federally mandated warning applies: This information has been disclosed to you from records protected by federal confidentiality rules (42 CFR part 2). The federal rules prohibit you from making any further disclosure of this information unless further disclosure is expressly permitted by the written consent of the person to whom it pertains or as otherwise permitted by 42 CFR part 2. A general authorization for the release of medical or other information is NOT sufficient for this purpose. The Federal rules restrict any use of the information to criminally investigate or prosecute any alcohol or drug abuse patient.The records that you are about to access may contain highly sensitive health information, the redisclosure of which is protected by Article 27-F of the [facility] Public Health law. If you continue you may have access to information: Regarding HIV / AIDS; Provided by facilities licensed or operated by the [facility] Office of Mental Health; or Provided by the [facility] Office for People With Developmental Disabilities. If such information is present, then the following [facility] mandated warning applies: This information has been disclosed to you from confidential records which are protected by state law. State law prohibits you from making any further disclosure of this information without the specific written consent of the person to whom it pertains, or as otherwise permitted by law. Any unauthorized further disclosure in violation of state law may result in a fine or group home sentence or both. A general authorization for the release of medical or other information is NOT sufficient authorization for further disc losure. Family History Family Member Name Family Member Gender Family Member Status Date o f Status Description Data Source(s) Unknown Male Problem [facility] ([facility], ) Unknown Male Problem [facility] ([facility], ) Encounters Encounter Providers Location Date Indications Data Source(s ) Outpatient [address] [place] [id number] 11/25/2020 12:00:00 AM EDT eCW1 (Critical access hospital) Outpatient [address] [facility] [address] 11/09/2020 12:00:00 AM EDT eCW1 (Critical access hospital) Outpatient [address] [facility] [address] 11/01/2020 12:00:00 AM EDT eCW1 (Critical access hospital) Unknown [address] [place] [address] [place] [address] 11/01/2020 12:00:00 AM EDT eCW1 (Critical access hospital) <td ID="encounterTypeDescriptionID0">H A dult Prophy</td><td>Ellen Callahan [facility]</td><td>Day Dental</td><td>10/14/2020</td><td>10:03AM</td><td>10:51AM</td><td></td>Unknown Attender: Ellen Callahan [facility] Day Dental 10/14/2020 10:03:00 AM E DT - 10/14/2020 10:51:00 AM EDT [facility] ([facility]) Outpatient [address] [facility] [place] [address] 10/06/2020 12:00:00 AM EDT eCW1 (Critical access hospital) Unknown [address] [facility] [address] 10/05/2020 12:00:00 AM EDT eCW1 (Critical access hospital) Outpatient [address] [facility] [address] 07/22/2020 12:00:00 AM EDT eCW1 (Critical access hospital) Unknown [address] [facility] [place] [address] 07/22/2020 12:00:00 AM EDT eCW1 (Critical access hospital) Outpatient [address] [facility] [address] 06/16/2020 12:00:00 AM EDT eCW1 (Critical access hospital) TeleMedicine Phone E/M by Phys 5-10 Min [address] [place] [address] 05/07/2020 12:00:00 AM EDT eCW1 ([facility]) Unknown [address] [facility] [place] [address] 04/16/2020 12:00:00 AM EST eCW1 (Critical access hospital) Outpatient [address] [facility] [place] [address] 04/15/2020 12:00:00 AM EST eCW1 (Critical access hospital) Immunizations Vaccine Date Status Description Data Source(s) COVID-19 VACCINE [place] 04/28/2020 12:00:00 AM EDT completed [facility] Vaccine Series Complete: YESThis Data wa s Submitted to [facility] Via [employer]. COVID-19 VACCINE Pfizer 04/07/2020 12:00:00 AM EST completed [facility] Vaccine Series Complete: NOThis Data was Submitted to [facility] Via [employer]. Medications Medication Brand Name Start Date Product Form Dose Route Admi nistrative Instructions Pharmacy Instructions Status Indications Reaction Description Data Source(s) doxycycline hyclate 100 MG Oral Capsule DOXYCYCLINE HYCLATE 12/03/2020 12:00:00 AM EDT capsule 20 TAKE ONE CAPSULE BY MOUTH TW ICE A DAY FOR 10 DAYS TAKE ONE CAPSULE BY MOUTH TWICE A DAY FOR 10 DAYS SOLD: 12/03/2020 [facility] 2 % 12/03/2020 12:00:00 AM EDT ointment 22 APPLY EXTERNALLY TO BOTH EAR PIERCINGS ONCE DAILY AT BEDTIME DIRECTED FOR 5 DAYS APPLY EXTERNALLY TO BOTH EAR PIERCINGS ONCE DAILY AT BEDTIME DIRECTED FOR 5 DAYS SOLD: 12/03/2020 [facility] 60 mcg (15 mcg x 4)/0.5 mL 12/03/2020 12:00:00 AM EDT syring e 0 INJECT DIRECTED INJECT DIRECTED SOLD: 12/03/2020 [facility] 0.5 mg 11/18/2020 12:00:00 AM EDT tablet 30 TAKE ONE TABLET BY MOUTH AT BEDTIME MAXIMUM DAILY DOSE = 1 TAKE ONE TABLET BY MOUTH AT BEDTIME MAXI MUM DAILY DOSE = 1 SOLD: 11/19/2020 [facility] 50 mcg (2,000 unit) 11/10/2020 12:00:00 AM EDT tablet 30 TAKE ONE TABLET BY MOUTH EVERY DAY TAKE ONE TABLET BY MOUTH EVERY DAY SOLD: 11/12/2020 [facility] Cholecalciferol 1999 UNT Oral Tablet Vitamin D 50 MCG (1999 UT) Vitamin D 50 MCG (1999 UT) 11/09/2020 12:00:00 AM EDT 1.0 {tablet} ac tive Vitamin D 50 MCG (1999 UT) eCW1 ([facility]) Cholecalciferol 2000 UNT Oral Tablet Vitamin D 50 MCG (1999 UT) Vitamin D 50 MCG (1999 UT) 11/09/2020 12:00:00 AM EDT 1.0 {tablet} ac tive Vitamin D 50 MCG (2000 UT) eCW1 ([facility]) Amoxicillin 875 MG / Clavulanate 125 MG Oral Tablet Amoxicillin-Pot Clavulanate 875-125 MG Amoxicillin-Pot Clavulanate 875-125 MG 11/03/2020 12:00:00 AM ED T 1.0 {tablet} suspended Amoxicillin-Pot C lavulanate 875-125 MG eCW1 ([facility]) Amoxicillin 875 MG / Clavulanate 125 MG Oral Tablet Amoxicillin-Pot Clavulanate 875-125 MG Amoxicillin-Pot Clavulanate 875-125 MG 11/03/2020 12:00:00 AM ED T 1.0 {tablet} active Amoxicillin-Pot Cla vulanate 875-125 MG eCW1 ([facility]) Amoxicillin 875 MG / Clavulanate 125 MG Oral Tablet Amoxicillin-Pot Clavulanate 875-125 MG Amoxicillin-Pot Clavulanate 875-125 MG 11/03/2020 12:00:00 AM ED T 1.0 {tablet} active Amoxicillin-Pot Cla vulanate 875-125 MG eCW1 ([facility]) Amoxicillin 875 MG / Clavulanate 125 MG Oral Tablet 87 5-125 mg AMOXICILLIN/POTASSIUM CLAV 11/03/2020 12:00:00 AM EDT tablet 20 TAKE ONE TABLET BY MOUTH EVERY 12 HOURS FOR 10 DAYS TAKE ONE TABLET BY MOUTH EVERY 12 HOURS FOR 10 DAYS SOLD: 11/03/2020 [facility] chlorhexidine gluconate 1.2 MG/ML Mouthw rodrigo Chlorhexidine Gluconate 0.12% Mouth/Throat Solution Chlorhexidine Gluconate 0.12% Mouth/Throat Solution 10/14/2020 12:00:00 AM EDT 1 active chlorhexidine gluconate 1.2 MG/ML Mouthwash [place] ([facility]) Prednisone 20 MG Oral Tablet predniSONE 20 MG predniSONE 20 MG 10/06/2020 12:00:00 AM EDT 2.0 {tablets} active p redniSONE 20 MG eCW1 ([facility]) Prednisone 20 MG Oral Tablet predniSONE 20 MG predniSONE 20 MG 10/06/2020 12:00:00 AM EDT 2.0 {tablets} active p redniSONE 20 MG eCW1 ([facility]) Prednisone 20 MG Oral Tablet predniSONE 20 MG predniSONE 20 MG 10/06/2020 12:00:00 AM EDT 2.0 {tablets} active p redniSONE 20 MG eCW1 ([facility]) quetiapine 50 MG Oral Tablet QUETIAPINE FUMARATE 09/22/2020 12:0 0:00 AM EDT tablet 30 TAKE ONE TABLET BY MOUTH AT BEDT BROWN TAKE ONE TABLET BY MOUTH AT BEDTIME SOLD: 11/29/2020 [facility] quetiapine 50 MG Oral Tablet QUETIAPINE FUMARATE 09/22/2020 12:0 0:00 AM EDT tablet 30 TAKE ONE TABLET BY MOUTH AT BEDT BROWN TAKE ONE TABLET BY MOUTH AT BEDTIME SOLD: 09/30/2020 [facility] quetiapine 50 MG Oral Tablet QUETIAPINE FUMARATE 09/22/2020 12:0 0:00 AM EDT tablet 30 TAKE ONE TABLET BY MOUTH AT BEDT BROWN TAKE ONE TABLET BY MOUTH AT BEDTIME SOLD: 10/30/2020 [facility] quetiapine 50 MG Oral Tablet QUETIAPINE FUMARATE 08/17/2020 12:0 0:00 AM EDT tablet 30 TAKE ONE TABLET BY MOUTH AT BEDT BROWN TAKE ONE TABLET BY MOUTH AT BEDTIME SOLD: 08/20/2020 [facility] quetiapine 50 MG Oral Tablet QUETIAPINE FUMARATE 07/20/2020 12:0 0:00 AM EDT tablet 30 TAKE ONE TABLET BY MOUTH AT BEDT BROWN TAKE ONE TABLET BY MOUTH AT BEDTIME SOLD: 07/22/2020 [facility] quetiapine 50 MG Oral Tablet QUETIAPINE FUMARATE 06/22/2020 12:0 0:00 AM EDT tablet 30 TAKE ONE TABLET BY MOUTH AT BEDT BROWN TAKE ONE TABLET BY MOUTH AT BEDTIME SOLD: 07/01/2020 [facility] 10 mg 05/07/2020 12:00:00 AM EDT tablet 3 TAKE ONE TABLET BY MOUTH EVERY DAY TAKE ONE TABLET BY MOUTH EVERY DAY SOLD: 06/17/2020 [facility] 10 mg 05/07/2020 12:00:00 AM EDT tablet 3 TAKE ONE TABLET BY MOUTH EVERY DAY TAKE ONE TABLET BY MOUTH EVERY DAY SOLD: 05/08/2020 [facility] 10 mg 05/07/2020 12:00:00 AM EDT tablet 3 TAKE ONE TABLET BY MOUTH EVERY DAY TAKE ONE TABLET BY MOUTH EVERY DAY SOLD: 07/01/2020 [facility] 10 mg 05/07/2020 12:00:00 AM EDT tablet 3 TAKE ONE TABLET BY MOUTH EVERY DAY TAKE ONE TABLET BY MOUTH EVERY DAY SOLD: 05/25/2020 [facility] 10 mg 05/07/2020 12:00:00 AM EDT tablet 3 TAKE ONE TABLET BY MOUTH EVERY DAY TAKE ONE TABLET BY MOUTH EVERY DAY SOLD: 07/25/2020 [facility] chlorhexidine gluconate 1.2 MG/ML Mouthw rodrigo Chlorhexidine Gluconate 0.12% Mouth/Throat Solution Chlorhexidine Gluconate 0.12% Mouth/Throat Solution 04/26/2020 12:00:00 AM EDT aborted chlorhexidine gluconate 1.2 MG/ML Mouthwash [facility] ([facility]) 0.12 % 04/26/2020 12:00:00 AM EDT mouthwash 473 SWISH WITH 15 MLS BY MOUTH IN THE MORNING AND EVENING .FOLLOWING BRUSHING AND FLOSSING SWISH WITH 15 MLS BY MOUTH IN THE MORNING AND EVENING .FOLLOWING BRUSHING AND FLOSSING SOLD: 04/28/2020 [facility] 10 mg 04/16/2020 12:00:00 AM EST tablet 3 TAKE ONE TABLET BY MOUTH EVERY DAY TAKE ONE TABLET BY MOUTH EVERY DAY SOLD: 04/16/2020 [facility] 10 mg 04/16/2020 12:00:00 AM EST tablet 3 TAKE ONE TABLET BY MOUTH EVERY DAY TAKE ONE TABLET BY MOUTH EVERY DAY SOLD: 04/28/2020 [facility] rizatriptan 10 MG Oral Tablet [Maxalt] Maxalt 10 MG Maxalt 1 0 MG 04/15/2020 12:00:00 AM EST 1.0 {tablet} active Ma xalt 10 MG eCW1 ([facility]) rizatriptan 10 MG Oral Tablet [Maxalt] Maxalt 10 MG Maxalt 1 0 MG 04/15/2020 12:00:00 AM EST 1.0 {tablet} active Ma xalt 10 MG eCW1 ([facility]) rizatriptan 10 MG Oral Tablet [Maxalt] Maxalt 10 MG Maxalt 1 0 MG 04/15/2020 12:00:00 AM EST 1.0 {tablet} active Ma xalt 10 MG eCW1 ([facility]) rizatriptan 10 MG Oral Tablet [Maxalt] Maxalt 10 MG Maxalt 1 0 MG 04/15/2020 12:00:00 AM EST 1.0 {tablet} suspended Maxalt 10 MG eCW1 ([facility]) rizatriptan 10 MG Oral Tablet [Maxalt] Maxalt 10 MG Maxalt 1 0 MG 04/15/2020 12:00:00 AM EST 1.0 {tablet} active Ma xalt 10 MG eCW1 ([facility]) rizatriptan 10 MG Oral Tablet [Maxalt] Maxalt 10 MG Maxalt 1 0 MG 04/15/2020 12:00:00 AM EST 1.0 {tablet} suspended Maxalt 10 MG eCW1 ([facility]) rizatriptan 10 MG Oral Tablet [Maxalt] Maxalt 10 MG Maxalt 1 0 MG 04/15/2020 12:00:00 AM EST 1.0 {tablet} active Ma xalt 10 MG eCW1 ([facility]) rizatriptan 10 MG Oral Tablet [Maxalt] Maxalt 10 MG Maxalt 1 0 MG 04/15/2020 12:00:00 AM EST 1.0 {tablet} suspended Maxalt 10 MG eCW1 ([facility]) rizatriptan 10 MG Oral Tablet [Maxalt] Maxalt 10 MG Maxalt 1 0 MG 04/15/2020 12:00:00 AM EST 1.0 {tablet} active Ma xalt 10 MG eCW1 ([facility]) rizatriptan 10 MG Oral Tablet [Maxalt] Maxalt 10 MG Maxalt 1 0 MG 04/15/2020 12:00:00 AM EST 1.0 {tablet} active Ma xalt 10 MG eCW1 ([facility]) buspirone hydrochloride 15 MG Oral Tablet BUSPIRONE HCL 03/27/2020 12:00:00 AM EST tablet 60 TAKE ONE TABLET BY MOUTH TWI CE A DAY TAKE ONE TABLET BY MOUTH TWICE A DAY SOLD: 04/06/2020 [facility] quetiapine 100 MG Oral Tablet QUETIAPINE FUMARATE 03/27/2020 12: 00:00 AM EST tablet 60 TAKE 2 TABLETS BY MOUTH AT BEDTI ME TAKE 2 TABLETS BY MOUTH AT BEDTIME SOLD: 04/06/2020 [facility] quetiapine 100 MG Oral Tablet QUETIAPINE FUMARATE 03/27/2020 12: 00:00 AM EST tablet 60 TAKE 2 TABLETS BY MOUTH AT BEDTI ME TAKE 2 TABLETS BY MOUTH AT BEDTIME SOLD: 05/11/2020 [facility] buspirone hydrochloride 15 MG Oral Tablet BUSPIRONE HCL 12/26/2019 12:00:00 AM EST tablet 60 TAKE ONE TABLET BY MOUTH TWI CE A DAY TAKE ONE TABLET BY MOUTH TWICE A DAY SOLD: 03/02/2020 [facility] buspirone hydrochloride 15 MG Oral Tablet BUSPIRONE HCL 12/26/2019 12:00:00 AM EST tablet 60 TAKE ONE TABLET BY MOUTH TWI CE A DAY TAKE ONE TABLET BY MOUTH TWICE A DAY SOLD: 12/30/2019 [facility] quetiapine 100 MG Oral Tablet QUETIAPINE FUMARATE 12/25/2019 12: 00:00 AM EST tablet 60 TAKE TWO TABLETS BY MOUTH AT BED TIME TAKE TWO TABLETS BY MOUTH AT BEDTIME SOLD: 03/02/2020 [facility] quetiapine 100 MG Oral Tablet QUETIAPINE FUMARATE 12/25/2019 12: 00:00 AM EST tablet 60 TAKE TWO TABLETS BY MOUTH AT BED TIME TAKE TWO TABLETS BY MOUTH AT BEDTIME SOLD: 12/30/2019 [facility] quetiapine 100 MG Oral Tablet QUETIAPINE FUMARATE 12/25/2019 12: 00:00 AM EST tablet 60 TAKE TWO TABLETS BY MOUTH AT BED TIME TAKE TWO TABLETS BY MOUTH AT BEDTIME SOLD: 02/03/2020 [facility] quetiapine 100 MG Oral Tablet QUETIAPINE FUMARATE 11/28/2019 12: 00:00 AM EDT tablet 60 TAKE TWO TABLETS BY MOUTH AT BED TIME TAKE TWO TABLETS BY MOUTH AT BEDTIME SOLD: 12/09/2019 [facility] quetiapine 100 MG Oral Tablet QUETIAPINE FUMARATE 10/30/2019 12: 00:00 AM EDT tablet 60 TAKE TWO TABLETS BY MOUTH AT BED TIME TAKE TWO TABLETS BY MOUTH AT BEDTIME SOLD: 11/04/2019 [facility] Amoxicillin 500 MG Oral Capsule Amoxicillin 500 MG Oral Caps ule 10/09/2019 12:00:00 AM EDT completed amoxi cillin 500 MG Oral Capsule [facility] ([facility]) 500 mg 10/09/2019 12:00:00 AM EDT capsule 30 TAKE ONE CAPSULE BY MOUTH EVERY 8 HOURS UNTIL FINISHED TAKE ONE CAPSULE BY MOUTH EVERY 8 HOURS UNTIL FINISHED SOLD: 10/13/2019 [facility] Insurance Providers Payer name Policy type / Coverage type Policy ID Covered constitution party ID Covered constitution party's relationship to hsieh Policy Hsieh Plan Information [employer] [facility] [place] [id number] Self [id number] [employer] [place] [id number] Self [id number] [employer] [place] [id number] Self [id number] [employer] [facility] [place] Medicaid [id number] Self [id number] [employer] [facility] [place] Medicaid [id number] Self [id number] [employer] [place] Medicaid [id number] [facility] [id number] SP [id number] [facility] [id number] SP [id number] [facility]-Medicaid [id number] ANSI-Commercial [id number] ANSI-Commercial [id number] ANSI-Medicaid [id number] ANSI-Commercial [id number] ANSI-Medicaid [id number] [facility] Health Maintenance Organization ([facility]) [id number] [facility] [id number] ANSI-Not a Secondary Insurance [id number] ANSI-Commercial [id number] [facility] [id number] ANSI-Not a Secondary Insurance [id number] ANSI-Commercial [id number] ANSI-Commercial [id number] ANSI-Commercial [id number] ANSI-Commercial [id number] ANSI-Commercial [id number] ANSI-Commercial [id number] [place] Med[place] [id number] Self [id number] [facility] [id number] SP [id number] Medicaid [place] Medigap Part B [id number] Self [id number] [place] Medig[place] Part [place] [id number] Self [id number] [place] [id number] Self [id number] MEDICAID M [id number] S [id number] [facility] [place] O [id number] S [id number] MEDICAID [id number] SP [id number] Medicaid [place] Medigap Part B [id number] Self [id number] Medicaid [place] Medigap Part B [id number] Self [facility] [place] Medicaid [id number] Self [facility] [id number] SP [id number] [facility] [id number] [facility] [id number] SELF PAY UNAVAILABLE UNAVAILA BLE [place] [id number] Self [id number] [facility] [id number] ANSI-Medicaid [id number] ANSI-Commercial [id number] [facility] [id number] [facility] [id number] Problems, Conditions, and Diagnoses Code Display Name Description Problem Type Effective Dates Data Source(s) F31.9 891025993 Bipolar 1 disorder Problem 04/15/2020 12:00: 00 AM EST eCW1 ([facility]) G43.909 [id number] Migraine without sta tus migrainosus, not intractable, unspecified migraine type Problem 04/15/2020 12:00:00 AM EST eCW1 ([facility]) F31.73 [id number] Bipolar disorder, in partial remission, most recent episode manic Problem 04/15/2020 12:00:00 AM EST eCW1 ([facility]) F41.1 [id number] Generalized anxiety disorder Problem 021 12:00:00 AM EST eCW1 ([facility]) Surgeries/Procedures Procedure Description Date Indications Data Source(s) Clinical summary transmitted to referrin g provider electronically with reasonable certainty of receipt or receiving provider electronically through [facility] 10/14/2020 12:00:00 AM EDT - 10/14/2020 12:00:00 AM EDT [facility] ([facility]) Transition in care medication list update 10/14/2020 12:00:00 AM EDT - 10/14/2020 12:00:00 AM EDT [facility] ([facility]) Prophylaxis Adult Prophylaxis Adult 10/14/2020 12:00:00 AM EDT [place] ([facility]) Periodic Oral Evaluation Periodic Oral Evaluation 10/14/2020 12:00: 00 AM EDT [place] ([facility]) Oral Cancer Screening Oral Cancer Screening 10/14/2020 12:00:00 AM EDT [place] ([facility]) Oral Hygiene/[facility] Oral Hygiene/[facility] 10/14/2020 12:00:00 AM EDT [place] ([facility]) Nutritional Counseling Nutritional Counseling 10/14/2020 12:00:00 A M EDT [place] ([facility]) [facility] - 4 radiographic images [facility] - 4 radiographic i mages 10/14/2020 12:00:00 AM EDT [place] ([facility]) Results No Information Social History Code Duration Value Status Description Data Source(s ) Smoking 11/25/2020 12:00:00 AM EDT Never Smoker completed Never S moker eCW1 ([facility]) Smoking 11/09/2020 12:00:00 AM EDT Never Smoker completed Never S moker eCW1 ([facility]) Smoking 11/01/2020 12:00:00 AM EDT Never Smoker completed Never S moker eCW1 ([facility]) Smoking 11/01/2020 12:00:00 AM EDT Never Smoker completed Never S moker eCW1 ([facility]) Smoking 10/14/2020 09:55:00 AM EDT Tobacco smoki ng consumption unknown (finding) completed Tobacco smoking consumption unknown (fin ding) [place] ([facility]) Smoking 10/06/2020 12:00:00 AM EDT Never Smoker completed Never S moker eCW1 ([facility]) Smoking 07/22/2020 12:00:00 AM EDT Never Smoker completed Never S moker eCW1 ([facility]) Smoking 07/22/2020 12:00:00 AM EDT Never Smoker completed Never S moker eCW1 ([facility]) Smoking 07/22/2020 12:00:00 AM EDT Never Smoker completed Never S moker eCW1 ([facility]) Smoking 06/16/2020 12:00:00 AM EDT Never Smoker completed Never S moker eCW1 ([facility]) Smoking 05/07/2020 12:00:00 AM EDT Never Smoker completed Never S moker eCW1 ([facility]) Smoking 04/15/2020 12:00:00 AM EST Never Smoker completed Never S moker eCW1 ([facility]) Smoking 04/15/2020 12:00:00 AM EST Never Smoker completed Never S moker eCW1 ([facility]) Vital Signs ID Date Data Source UNK Name Value Range Interpretation Code Description Data Source(s) Body weight 151 [lb_av] 151 [lb_av] eCW1 ([facility]) Body weight 68.49 kg 68.49 kg eCW1 ([facility]) Body height 64 [in_i] 64 [in_i] eCW1 ([facility]) Body mass index (BMI) [Ratio] 25.92 kg/m2 25.92 kg/m2 eCW1 ([facility]) Systolic blood pressure 116 mm[Hg] 116 mm[Hg] e [place]1 ([facility]) Diastolic blood pressure 70 mm[Hg] 70 mm[Hg] eCW1 ([facility]) Body weight 147 [lb_av] 147 [lb_av] eCW1 ([facility]) Body height 64 [in_i] 64 [in_i] eCW1 ([facility]) Body mass index (BMI) [Ratio] 25.23 kg/m2 25.23 kg/m2 eCW1 ([facility]) Heart rate 104 /min 104 /min eCW1 ([facility]) Respiratory rate 18 /min 18 /min eCW1 ([facility]) Body temperature 97.9 [degF] 97.9 [degF] eCW1 ( [facility]) Systolic blood pressure 90 mm[Hg] 90 mm[Hg] e CW1 ([facility]) Diastolic blood pressure 68 mm[Hg] 68 mm[Hg] eCW1 ([facility]) Body weight 149.6 [lb_av] 149.6 [lb_av] eCW1 ([facility]) Body weight 67.86 kg 67.86 kg eCW1 ([facility]) Body height 64 [in_i] 64 [in_i] eCW1 ([facility]) Body mass index (BMI) [Ratio] 25.68 kg/m2 25.68 kg/m2 eCW1 ([facility]) Heart rate 80 /min 80 /min eCW1 ([facility]) Respiratory rate 18 /min 18 /min eCW1 ([facility]) Body temperature 97.8 [degF] 97.8 [degF] eCW1 ( [facility]) Systolic blood pressure 110 mm[Hg] 110 mm[Hg] e CW1 (Formerly [facility]) Diastolic blood pressure 72 mm[Hg] 72 mm[Hg] eCW1 ([facility]ly [facility]) Body weight 142 [lb_av] 142 [lb_av] eCW1 ([facility]) Body weight 64.41 kg 64.41 kg eCW1 ([facility]) Body height 64 [in_i] 64 [in_i] eCW1 ([facility]) Body mass index (BMI) [Ratio] 24.37 kg/m2 24.37 kg/m2 eCW1 (Formerly [facility]) Heart rate 75 /min 75 /min eCW1 ([facility]) Respiratory rate 18 /min 18 /min eCW1 ([facility]) Body temperature 97.9 [degF] 97.9 [degF] eCW1 ( [facility]) Systolic blood pressure 104 mm[Hg] 104 mm[Hg] e CW1 ([facility]) Diastolic blood pressure 64 mm[Hg] 64 mm[Hg] eCW1 ([facility]ly [facility]) Body weight 147 [lb_av] 147 [lb_av] eCW1 ([facility]) Body height 64 [in_i] 64 [in_i] eCW1 ([facility]) Body mass index (BMI) [Ratio] 25.23 kg/m2 25.23 kg/m2 eCW1 ([facility]ly [facility]) Heart rate 86 /min 86 /min eCW1 ([facility]) Respiratory rate 18 /min 18 /min eCW1 ([facility]) Body temperature 98.2 [degF] 98.2 [degF] eCW1 ( [facility]) Systolic blood pressure 106 mm[Hg] 106 mm[Hg] e CW1 ([facility]) Diastolic blood pressure 80 mm[Hg] 80 mm[Hg] eCW1 ([facility]) Body height 64 [in_i] 64 [in_i] eCW1 ([facility]) Body weight 156 [lb_av] 156 [lb_av] eCW1 ([facility]) Body weight 70.76 kg 70.76 kg eCW1 ([facility]) Body mass index (BMI) [Ratio] 26.77 kg/m2 26.77 kg/m2 eCW1 ([facility]) Systolic blood pressure 100 mm[Hg] 100 mm[Hg] e CW1 ([facility]) Diastolic blood pressure 58 mm[Hg] 58 mm[Hg] eCW1 ([facility]) Body weight 157 [lb_av] 157 [lb_av] eCW1 ([facility]) Body height 64 [in_i] 64 [in_i] eCW1 ([facility]) Body mass index (BMI) [Ratio] 26.95 kg/m2 26.95 kg/m2 eCW1 ([facility]) Heart rate 106 /min 106 /min eCW1 ([facility]) Respiratory rate 18 /min 18 /min eCW1 ([facility]) Body temperature 98.2 [degF] 98.2 [degF] eCW1 ( [facility]) Systolic blood pressure 94 mm[Hg] 94 mm[Hg] e CW1 ([facility]) Diastolic blood pressure 58 mm[Hg] 58 mm[Hg] eCW1 ([facility]ly [facility]) Patient Treatment Plan of Care Planned Activity Planned Date Details Description Data Source (s) Cholecalciferol 2000 UNT Oral Tablet 11/09/2020 12:00:00 AM EDT eCW1 ([facility]ly [facility]) Amoxicillin 875 MG / Clavulanate 125 MG Oral Tablet 11/04/19 12:00:00 AM EDT eCW1 ([facility]) chlorhexidine gluconate 1.2 MG/ML Mouthwash 10/14/2020 12:00:00 AM EDT SAMI ([facility]) Prednisone 20 MG Oral Tablet 10/06/2020 12:00:00 AM EDT eCW1 (Formerly [facility]) chlorhexidine gluconate 1.2 MG/ML Mouthwash 04/26/2020 12:00:00 AM EDT SAMI ([facility]) rizatriptan 10 MG Oral Tablet [Maxalt] 04/15/2020 12:00:00 AM EST eCW1 ([facility]ly [facility]) rizatriptan 10 MG Oral Tablet [Maxalt] 04/15/2020 12:00:00 AM EST eCW1 ([facility]ly [facility]) rizatriptan 10 MG Oral Tablet [Maxalt] 04/15/2020 12:00:00 AM EST eCW1 ([facility]ly [facility]) Amoxicillin 500 MG Oral Capsule 10/09/2019 12:00:00 AM EDT SAMI ([facility])
[2020-12-09 17:19] LABS: HEMATOCRIT 46.4 % (36.0-47.0); HEMOGLOBIN 15.3 g/dl (12.0-15.5); MEAN CORPUSCULAR HEMOGLOBIN 31.5 pg (27.0-33.0); MEAN CORPUSCULAR VOLUME 95.5 fl (80.0-96.0); PLATELET COUNT, AUTOMATED 287 10^3/uL (150-450); RED BLOOD COUNT 4.86 10^6/uL (4.00-5.40); WHITE BLOOD COUNT 8.6 10^3/uL (4.0-10.0)
[2020-12-09 17:38] LABS: ERYTHROCYTE SEDIMENTATION RATE 2 mm/hr (0-20)
[2020-12-09 17:41] LABS: BLOOD UREA NITROGEN 9 MG/DL (7-18); CALCIUM LEVEL 9.1 MG/DL (8.5-10.1); CARBON DIOXIDE LEVEL 25 MEQ/L (21-32); CHLORIDE LEVEL 111 MEQ/L (98-107); CREATININE FOR GFR 0.82 MG/DL (0.55-1.30); GLOMERULAR FILTRATION RATE > 60.0 (>60); GLUCOSE, FASTING 96 MG/DL (70-100); POTASSIUM SERUM 3.8 MEQ/L (3.5-5.1); SODIUM LEVEL 140 MEQ/L (136-145)
[2020-12-09 17:51] LABS: HCG, SERUM QUALITATIVE NEGATIVE (NEGATIVE)
== END 2020-12-10 00:29 | disposition home or self-care (01) ==
LOC: M ED 14:57
DX: G50.1 Atypical facial pain (principal); Z79.899 Other long term (current) drug therapy

== ENCOUNTER → 2021-07-27 | Outpatient (REF) | payer OTHER, MEDICAID ==
[2021-07-27 14:48] LABS: APPEARANCE, URINE HAZY (CLEAR); BACTERIA, URINE AUTO NEGATIVE (NEGATIVE); BILIRUBIN, URINE AUTO NEGATIVE (NEGATIVE); BLOOD, URINE BLOOD NEGATIVE (NEGATIVE); COLOR, URINE YELLOW (YELLOW); GLUCOSE, URINE (UA) AUTO NEGATIVE (NEGATIVE); KETONE, URINE AUTO NEGATIVE (NEGATIVE); LEUKOCYTE ESTERASE, URINE AUTO 1+ (NEGATIVE); NITRITE, URINE AUTO NEGATIVE (NEGATIVE); PROTEIN, URINE AUTO NEGATIVE (NEGATIVE); RBC, URINE AUTO 1 /HPF (0-3); SPECIFIC GRAVITY URINE AUTO 1.014 (1.002-1.035); SQUAMOUS EPITHELIAL CELL UR AU 4 /HPF (0-6); UROBILINOGEN, URINE AUTO 0.2 mg/dL (0.0-2.0); WBC, URINE AUTO 2 /HPF (0-3)
== END ==
LOC: M SFHCADAM 12:29
PROVIDERS: ATTEND Physician Assistant Medical
DX: R39.15 Urgency of urination (principal)

== ENCOUNTER → 2021-11-07 | Outpatient (REF) | payer OTHER ==
[2021-11-07 13:15] LABS: BASO % 0.3 % (0.0-1.0); EOS # 0.1 10^3/uL (0.0-0.5); EOS % 2.2 % (0.0-3.0); HEMATOCRIT 43.8 % (36.0-47.0); HEMOGLOBIN 14.5 g/dl (12.0-15.5); LYMPH # 2.3 10^3/uL (1.5-5.0); LYMPH % 37.9 % (24.0-44.0); MEAN CORPUSCULAR HEMOGLOBIN 31.7 pg (27.0-33.0); MEAN CORPUSCULAR HGB CONC 33.1 g/dl (32.0-36.5); MEAN CORPUSCULAR VOLUME 95.6 fl (80.0-96.0); MONO # 0.4 10^3/uL (0.0-0.8); MONO % 6.9 % (2.0-8.0); NEUTROPHILS # 3.1 10^3/uL (1.5-8.5); NEUTROPHILS % 52.4 % (36.0-66.0); PLATELET COUNT, AUTOMATED 277 10^3/uL (150-450); RED BLOOD COUNT 4.58 10^6/uL (4.00-5.40)
[2021-11-07 14:13] LABS: ALBUMIN 3.7 GM/DL (3.2-5.2); ALT/SGPT 25 U/L (12-78); BILIRUBIN,TOTAL 0.3 MG/DL (0.2-1.0); BLOOD UREA NITROGEN 15 MG/DL (7-18); CALCIUM LEVEL 8.8 MG/DL (8.5-10.1); CARBON DIOXIDE LEVEL 27 MEQ/L (21-32); CHLORIDE LEVEL 109 MEQ/L (98-107); CHOLESTEROL LEVEL 163 MG/DL (<200); CREATININE FOR GFR 0.89 MG/DL (0.55-1.30); GLOMERULAR FILTRATION RATE > 60.0 (>60); GLUCOSE, FASTING 81 MG/DL (70-100); HDL CHOLESTEROL 42 MG/DL (>40); LDL CHOLESTEROL 105 MG/DL (<100); NON-HDL-C 121 MG/DL; POTASSIUM SERUM 4.3 MEQ/L (3.5-5.1); SODIUM LEVEL 140 MEQ/L (136-145); TOTAL PROTEIN 6.7 GM/DL (6.4-8.2); TRIGLYCERIDES LEVEL 78 MG/DL (<150)
[2021-11-07 14:44] LABS: TOTAL 25(OH) VITAMIN D 47.9 NG/ML (30.0-100.0)
== END ==
LOC: M SFHCADAM 08:11
PROVIDERS: ATTEND Physician Assistant Medical
DX: Z00.00 Encounter for general adult medical examination without abnormal findings (principal); E55.9 Vitamin D deficiency, unspecified; F41.1 Generalized anxiety disorder

== ENCOUNTER 2022-09-10 10:44 | Emergency (ER) | payer MEDICAID, OTHER ==
[~2022-09-10] VITALS: Ht 162.6 cm; Wt 77.3 kg
[~2022-09-10 10:44] MED LIST changes: +BENZ2TAB48 PO; -BENZ2TAB5 PO
[2022-09-10] MEDS ORDERED: RIZA10TA66 PO (10:57)
[2022-09-10] MEDS ORDERED: VITMTA PO (10:58)
[2022-09-10 14:42] VITALS: BP 122/66; TEMP 98.1; O2SAT 100
== END 2022-09-10 14:43 | disposition home or self-care (01) ==
LOC: M ED 10:44
DX: S06.0X0A Concussion without loss of consciousness, initial encounter (principal); W19.XXXA Unspecified fall, initial encounter; Y92.89 Other specified places as the place of occurrence of the external cause

== ENCOUNTER → 2022-11-20 | Outpatient (REF) | payer OTHER ==
[~2022-11-20] MED LIST changes: +RIZA10TA66 PO; +VITMTA PO
== END ==
LOC: M SFHCWAGY 12:49
PROVIDERS: ATTEND Nurse Practitioner Family
DX: Z12.4 Encounter for screening for malignant neoplasm of cervix (principal); L29.2 Pruritus vulvae; R87.610 Atypical squamous cells of undetermined significance on cytologic smear of cervix (ASC-US)

== ENCOUNTER → 2022-11-20 | Outpatient (CLI) | payer OTHER | LOC: M WHC 08:29 | PROVIDERS: ATTEND Nurse Practitioner Family | DX: Z12.31 Encounter for screening mammogram for malignant neoplasm of breast (principal); Z53.8 Procedure and treatment not carried out for other reasons ==

== ENCOUNTER → 2022-12-07 | Outpatient (CLI) | payer OTHER | LOC: M WHC 08:05 | PROVIDERS: ATTEND Nurse Practitioner Family | DX: N64.4 Mastodynia (principal) ==

== ENCOUNTER → 2023-01-25 | Outpatient (REF) | payer OTHER | LOC: M SFHCWAGY 15:37 | PROVIDERS: ATTEND Nurse Practitioner Family | DX: B37.49 Other urogenital candidiasis (principal) ==

== ENCOUNTER → 2023-04-06 | Outpatient (REF) | payer OTHER ==
[2023-04-06 18:22] LABS: BASO % 0.2 % (0.0-1.0); EOS # 0.1 10^3/uL (0.0-0.5); LYMPH # 2.3 10^3/uL (1.5-5.0); LYMPH % 27.2 % (24.0-44.0); MEAN CORPUSCULAR HEMOGLOBIN 31.5 pg (27.0-33.0); MEAN CORPUSCULAR HGB CONC 33.3 g/dl (32.0-36.5); MEAN CORPUSCULAR VOLUME 94.6 fl (80.0-96.0); MONO # 0.5 10^3/uL (0.0-0.8); MONO % 5.6 % (2.0-8.0); NEUTROPHILS # 5.4 10^3/uL (1.5-8.5); NEUTROPHILS % 65.6 % (36.0-66.0); PLATELET COUNT, AUTOMATED 341 10^3/uL (150-450); RED BLOOD COUNT 4.44 10^6/uL (4.00-5.40); WHITE BLOOD COUNT 8.3 10^3/uL (4.0-10.0)
[2023-04-06 18:42] LABS: C REACTIVE PROTEIN QUANTITATIV < 0.40 MG/DL (<1.0)
[2023-04-06 18:43] LABS: ALBUMIN 3.8 G/DL (3.2-5.2); ALKALINE PHOSPHATASE 62 U/L (46-116); ALT/SGPT 24 U/L (7.0-40); AST/SGOT 12 U/L (<34); BILIRUBIN,TOTAL 0.3 MG/DL (0.3-1.2); BLOOD UREA NITROGEN 18 MG/DL (9-23); CARBON DIOXIDE LEVEL 26 MMOL/L (20-31); CHLORIDE LEVEL 107 MMOL/L (98-107); CREATININE FOR GFR 0.67 MG/DL (0.55-1.30); GLOMERULAR FILTRATION RATE > 60.0 (>58); GLUCOSE, FASTING 94 MG/DL (60-100); POTASSIUM SERUM 3.7 MMOL/L (3.5-5.1); SODIUM LEVEL 139 MMOL/L (136-145); TOTAL PROTEIN 6.8 G/DL (5.7-8.2)
[2023-04-06 18:48] LABS: ERYTHROCYTE SEDIMENTATION RATE 13 mm/hr (0-20)
== END ==
LOC: M SFHCADAM 15:21
PROVIDERS: ATTEND Physician Assistant
DX: R21 Rash and other nonspecific skin eruption (principal)

== ENCOUNTER → 2023-12-10 | Outpatient (REF) | payer OTHER ==
[2023-12-12 16:02] LABS: HPV APTIMA Not Detected (Not Detected)
== END ==
LOC: M SFHCWAGY 12:21
PROVIDERS: ATTEND Nurse Practitioner Family
DX: Z12.4 Encounter for screening for malignant neoplasm of cervix (principal); R87.610 Atypical squamous cells of undetermined significance on cytologic smear of cervix (ASC-US); Z11.51 Encounter for screening for human papillomavirus (HPV)

== ENCOUNTER → 2023-12-10 | Outpatient (CLI) | payer OTHER | LOC: M WHC 08:13 | PROVIDERS: ATTEND Nurse Practitioner Family | DX: Z12.31 Encounter for screening mammogram for malignant neoplasm of breast (principal) ==

== ENCOUNTER 2023-12-14 13:03 | Emergency (ER) | payer OTHER ==
[~2023-12-14] VITALS: Ht 162.6 cm; Wt 68.4 kg
[2023-12-14] MEDS ORDERED: VITA100093 (13:11)
[2023-12-14] MEDS ORDERED: FAMO1TAB11 (13:11)
[2023-12-14] MEDS ORDERED: OMEP40CA5 (13:11)
[2023-12-14] MEDS ORDERED: LORA-1041 (13:11)
[2023-12-14] MEDS ORDERED: [UNRECOGNIZED DRUG - OTHER] (13:12)
[2023-12-14] MEDS: ACETAMINOPHEN 500 MG TAB PO ONE (15:30)
[2023-12-14 16:18] VITALS: BP 108/59; TEMP 97.5; O2SAT 100
== END 2023-12-14 16:19 | disposition home or self-care (01) ==
LOC: M ED 13:03
DX: S06.0X0A Concussion without loss of consciousness, initial encounter (principal); W22.8XXA Striking against or struck by other objects, initial encounter; G43.909 Migraine, unspecified, not intractable, without status migrainosus; F51.01 Primary insomnia; Z79.899 Other long term (current) drug therapy; Y92.009 Unspecified place in unspecified non-institutional (private) residence as the place of occurrence of the external cause; Y93.89 Activity, other specified; Y99.9 Unspecified external cause status

== ENCOUNTER → 2024-02-20 | Outpatient (CLI) | payer OTHER ==
[~2024-02-20] MED LIST changes: +FAMO1TAB11; +LORA-1041; +OMEP40CA5; +VITA100093; +[UNRECOGNIZED DRUG - OTHER]
== END ==
LOC: M PLAIMG 14:59
PROVIDERS: ATTEND Physician Assistant
DX: S06.0X0A Concussion without loss of consciousness, initial encounter (principal); R42 Dizziness and giddiness; R68.89 Other general symptoms and signs; M54.2 Cervicalgia; R41.89 Other symptoms and signs involving cognitive functions and awareness; G43.109 Migraine with aura, not intractable, without status migrainosus

== ENCOUNTER → 2024-02-25 | Outpatient (CLI) | payer OTHER ==
[2024-02-25 13:59] LABS: BASO % 0.3 % (0.0-1.0); EOS # 0.1 10^3/uL (0.0-0.5); HEMATOCRIT 41.6 % (36.0-47.0); HEMOGLOBIN 14.1 g/dl (12.0-15.5); LYMPH # 1.7 10^3/uL (1.5-5.0); MEAN CORPUSCULAR HEMOGLOBIN 32.7 pg (27.0-33.0); MEAN CORPUSCULAR HGB CONC 33.9 g/dl (32.0-36.5); MEAN CORPUSCULAR VOLUME 96.5 fl (80.0-96.0); MONO # 0.4 10^3/uL (0.0-0.8); MONO % 7.5 % (2.0-8.0); NEUTROPHILS # 3.5 10^3/uL (1.5-8.5); NEUTROPHILS % 60.9 % (36.0-66.0); PLATELET COUNT, AUTOMATED 254 10^3/uL (150-450); RED BLOOD COUNT 4.31 10^6/uL (4.00-5.40); WHITE BLOOD COUNT 5.7 10^3/uL (4.0-10.0)
[2024-02-25 14:07] LABS: ERYTHROCYTE SEDIMENTATION RATE 7 mm/hr (0-20)
[2024-02-25 14:29] LABS: TOTAL 25(OH) VITAMIN D 43.9 NG/ML (20.0-100.0)
[2024-02-25 14:30] LABS: FOLATE > 24.0 NG/ML (>5.4)
[2024-02-25 14:31] LABS: FREE T4 1.17 NG/DL (0.89-1.76); VITAMIN B12 LEVEL 380 PG/ML (211-911)
[2024-02-25 14:32] LABS: COMPLEMENT C3 113.7 MG/DL (90.0-170.0)
[2024-02-25 14:33] LABS: COMPLEMENT C4 29.7 MG/DL (12-36); IRON (FE) 117 UG/DL (50-170)
[2024-02-25 14:34] LABS: ALBUMIN 3.9 G/DL (3.2-5.2); ALKALINE PHOSPHATASE 61 U/L (35-104); ALT/SGPT 14 U/L (7.0-40); AST/SGOT 9 U/L (<34); BILIRUBIN,TOTAL 0.6 MG/DL (0.3-1.2); BLOOD UREA NITROGEN 10 MG/DL (9-23); C REACTIVE PROTEIN QUANTITATIV < 0.50 MG/DL (<1.0); CALCIUM LEVEL 9.2 MG/DL (8.5-10.1); CARBON DIOXIDE LEVEL 24 MMOL/L (20-31); CHLORIDE LEVEL 107 MMOL/L (98-107); CHOLESTEROL LEVEL 137 MG/DL (<200); CHOLESTEROL RISK RATIO 2.92 (<5); CREATININE FOR GFR 0.85 MG/DL (0.55-1.30); GLOMERULAR FILTRATION RATE > 60.0 (>58); GLUCOSE, FASTING 70 MG/DL (60-100); HDL CHOLESTEROL 46.9 MG/DL (>40); LDL CHOLESTEROL 77.3 MG/DL (<100); NON-HDL-C 90.1 MG/DL; POTASSIUM SERUM 3.9 MMOL/L (3.5-5.1); SODIUM LEVEL 142 MMOL/L (136-145); TOTAL PROTEIN 6.7 G/DL (5.7-8.2); TRIGLYCERIDES LEVEL 64 MG/DL (<150)
== END ==
LOC: M LABDRWAD 08:59
PROVIDERS: ATTEND Physician Assistant Medical
DX: Z00.00 Encounter for general adult medical examination without abnormal findings (principal); K13.0 Diseases of lips; K21.9 Gastro-esophageal reflux disease without esophagitis; F42.2 Mixed obsessional thoughts and acts; R21 Rash and other nonspecific skin eruption; I73.00 Raynaud's syndrome without gangrene; E55.9 Vitamin D deficiency, unspecified; E78.00 Pure hypercholesterolemia, unspecified; Z13.0 Encounter for screening for diseases of the blood and blood-forming organs and certain disorders involving the immune mechanism

== ENCOUNTER → 2024-03-20 | Outpatient (CLI) | payer OTHER | LOC: M RAD 09:17 | PROVIDERS: ATTEND Nurse Practitioner Family | DX: R10.13 Epigastric pain (principal); K21.9 Gastro-esophageal reflux disease without esophagitis; K60.2 Anal fissure, unspecified; K59.00 Constipation, unspecified ==

== ENCOUNTER → 2024-09-19 | Outpatient (CLI) | payer OTHER ==
[2024-09-22 14:18] LABS: RUBEOLA IgG ANTIBODY 170.00 AU/mL (>16.49)
== END ==
LOC: M LAB 17:03
PROVIDERS: ATTEND Physician Assistant Medical
DX: Z01.84 Encounter for antibody response examination (principal)

== ENCOUNTER → 2024-12-17 | Outpatient (CLI) | payer OTHER | LOC: M WHC 08:18 | PROVIDERS: ATTEND Nurse Practitioner Family | DX: Z12.31 Encounter for screening mammogram for malignant neoplasm of breast (principal) ==